=== PATIENT | male | born 1940 | race Hispanic/Latino ===

== ENCOUNTER 2017-08-19 09:03 | Day surgery (SDC) | payer MEDICARE, OTHER ==
[2016-01-28 16:08] VITALS: PULSE 91
[2017-08-10 12:09] VITALS: BMI 27.3
[2017-08-19] MEDS ORDERED: Propofol 10 mg/ml Inj (20 ML) ONE (09:37)
[2017-08-19] MEDS ORDERED: Sodium Chloride 0.9% 1,000 ML IV SCH (09:45)
[2017-08-19 09:58] LABS: INR 1.18 (0.93-1.08)
[2017-08-19 12:05] VITALS: PULSE 56; RESP 20; TEMP 97.8; O2SAT 95
[2017-08-19 14:18] VITALS: BP 162/90
== END 2017-08-19 12:07 | disposition home or self-care (01) ==
LOC: ENDO 09:03
PROVIDERS: ATTEND Specialist
DX: Z12.11 Encounter for screening for malignant neoplasm of colon (principal); D12.2 Benign neoplasm of ascending colon; D12.3 Benign neoplasm of transverse colon; Z85.038 Personal history of other malignant neoplasm of large intestine; K64.8 Other hemorrhoids; I25.10 Atherosclerotic heart disease of native coronary artery without angina pectoris; I48.91 Unspecified atrial fibrillation
CPT/HCPCS: 36415; 45381; 45385; 85610; 88305; J2001; J2704; J7040 ×2

== ENCOUNTER 2018-06-19 22:52 | Inpatient (IN) | payer MEDICARE, OTHER ==
[2018-06-19 22:54] VITALS: BMI 23.6
--- NOTE | 2018-06-19 23:06 | ED PDOC ---
Arrival/HPI - General Time Seen by Provider: 06/19/18 22:53 Historian: Patient, Spouse - History of Present Illness Narrative History of Present Illness (Text): 06/19/18 22:58 Bradley Encinas is a 77 year old male, whose past medical history includes atrial fibrillation, aortic valve replacement, open heart surgery, and seizures , who presents to the Emergency department brought in by EMS status post possible seizure. As per , patient was sitting at home when he began complaining of chills, at that time patient temperature was 96.7F. states patient went to bed and noted patient was shaking and poorly responsive to questioning when she went to check on him. notes patient had urinated on himself and had a temperature of 102.7F. notes patient was fine throughout the day and patient currently only complaining of a headache. notes patient recently fell 2 days prior and hit his head. Patient denies any chest pain, shortness of breath, dizziness, or any other complaints. Patient regularly takes Trileptal, Warfarin, and Digoxin. PMD: Dr. Packer Assistant Service Manager: Dr. Tee Time/Duration: Prior to Arrival Symptom Onset: Sudden Activities at Onset: Light Context: Home Past Medical History - Provider Review Nursing Documentation Reviewed: Yes - Infectious Disease Hx of Infectious Diseases: None - Tetanus Immunization Tetanus Immunization: Unknown - Cardiac Hx Pacemaker: No - Pulmonary Hx Respiratory Disorders: No - Neurological Hx Seizures: Yes - HEENT Hx Deafness: Yes ([place]) - Renal Hx Renal Disorder: No - Endocrine/Metabolic Hx Endocrine Disorders: No - Hematological/Oncological Hx Blood Transfusions: No Hx Blood Transfusion Reaction: No - Integumentary Hx Dermatological Disorder: No - Musculoskeletal/Rheumatological Hx Musculoskeletal Disorders: Yes (HANDS) - Gastrointestinal Hx Gastrointestinal Disorders: No - Genitourinary/Gynecological Hx Genitourinary Disorders: No - Psychiatric Hx Emotional Abuse: No Hx Physical Abuse: No Hx Substance Use: No - Surgical History Hx Open Heart Surgery: Yes Hx Valve Replacement: Yes (AVR) - Anesthesia Hx Anesthesia: Yes Hx Anesthesia Reactions: No Hx Malignant Hyperthermia: No - Suicidal Assessment Feels Threatened In Home Enviroment: No Family/Social History - Physician Review Nursing Documentation Reviewed: Yes Family/Social History: Unknown Family HX Smoking Status: Never Smoked Hx Alcohol Use: Yes (SOCIALLY) Hx Substance Use: No Hx Substance Use Treatment: No Allergies/Home Meds Allergies/Adverse Reactions: Allergies COLD MEDICATIONS Allergy (Intermediate, Uncoded 07/04/16 11:55) RASH Home Medications: Home Meds Medication Instructions Recorded Confirmed Aspirin [Ecotrin] 81 mg PO DAILY 01/28/16 06/19/18 OXcarbazepine [Trileptal] 300 mg PO Q12 01/28/16 06/19/18 Tamsulosin [Flomax] 0.4 mg PO DAILY 01/28/16 06/19/18 Digoxin 0.125 mg PO DAILY 07/04/16 06/19/18 Warfarin [Coumadin] 6 mg PO QAM 07/04/16 06/19/18 Review of Systems - Physician Review All systems were reviewed & negative as marked: Yes - Review of Systems Constitutional: Fevers, Other (+chills) Eyes: Normal ENT: Normal Respiratory: Normal. absent: SOB, Cough Cardiovascular: Normal. absent: Chest Pain Gastrointestinal: Normal. absent: Abdominal Pain, Diarrhea, Nausea, Vomiting Genitourinary Male: Other (+urinary incontinence) Musculoskeletal: Normal. absent: Back Pain, Neck Pain Skin: Normal. absent: Rash Neurological: Headache, Seizure (+possible seizure) Endocrine: Normal Hemo/Lymphatic: Normal Psychiatric: Normal Physical Exam Vital Signs Temp Pulse Resp BP Pulse Ox 06/20/18 00:58 101.7 F H 77 18 131/62 95 06/20/18 00:00 101.7 F H 06/19/18 23:00 105 F H - Systems Exam Head: Present: Atraumatic, Normocephalic Pupils: Present: PERRL Extroacular Muscles: Present: EOMI Conjunctiva: Present: Normal Mouth: Present: Moist Mucous Membranes Neck: Present: Normal Range of Motion Respiratory/Chest: Present: Clear to Auscultation, Good Air Exchange. No: Respiratory Distress, Accessory Muscle Use Cardiovascular: Present: Regular Rate and Rhythm, Normal S1, S2. No: Murmurs Abdomen: No: Tenderness, Distention, Peritoneal Signs Back: Present: Normal Inspection Upper Extremity: Present: Normal Inspection. No: Cyanosis, Edema Lower Extremity: Present: Normal Inspection. No: Edema Neurological: Present: GCS=15, CN II-XII Intact, Speech Normal Skin: Present: Warm, Dry, Normal Color. No: Rashes Psychiatric: Present: Alert, Oriented x 3, Normal Insight, Normal Concentration Medical Decision Making ED Course and Treatment: 06/19/18 22:58 Impression: 77 year old male presented s/p possible seizure with fever and chills. Plan: -- EKG -- Chest X-ray -- Labs, VBG, troponin, blood cultures -- Urinalysis, urine cultures -- Reassess and disposition Prior Visits: Notes and results from previous visits were reviewed. Progress Notes: Reviewed EKG, a fib at [address] bpm[address] Non-specific ST/T wave changes. 06/20/18 00:50 Reviewed radiology, Chest X-ray shows no acute processes. CT Head shows: Brain: Diffuse cerebral volume loss and chronic microvascular white matter changes. Tiny old lacunar infarcts at the left basal ganglia and thalamus. Ventricles: Unremarkable. Bones/joints: Unremarkable. No acute fracture. Soft tissues: Unremarkable. Sinuses: Paranasal sinus mucosal changes. Mastoid air cells: Unremarkable as visualized. IMPRESSION: No focal mass or other acute intracranial pathology. Chronic changes as above. 06/20/18 01:[address] Smith, who is aware and agrees with plan. Accepts pt in to his service. Pt will be admitted to telemetry for UTI and seizure. - Lab Interpretations Lab Results: 06/19/18 23:20 06/19/18 23:20 Lab Results 06/20/18 00:55: Urine Color Yellow, Urine Appearance Sl cloudy, Urine pH 6.0, Ur Specific [place] 1.020, Urine Protein 30 H, Urine Glucose (UA) Negative, Urine Ketones Trace H, Urine Blood Large H, Urine Nitrate Positive H, Urine Bilirubin Negative, Urine Urobilinogen 1.0 H, Ur Leukocyte Esterase Small H, Urine RBC 20 - 25, Urine WBC 2 - 5, Ur Epithelial Cells 0 - 2, Urine Bacteria Mod 06/19/18 23:20: Sodium 142, Chloride 106, Potassium 3.6, Carbon Dioxide 25, Anion Gap 15, BUN 24 H, Creatinine 0.8, Est GFR ( Amer) > 60, Est GFR ( Non-Af Amer) > 60, Random Glucose 123 H, Calcium 9.1, Phosphorus 1.4 L*, Magnesium 1.7, Total Bilirubin 1.4 H, AST 36, ALT 24, Alkaline Phosphatase 106, Troponin I 0.11 D, Total Protein 7.5, Albumin 3.8, Globulin 3.7, Albumin/ Globulin Ratio 1.1 06/19/18 23:20: pO2 50, VBG pH 7.46 H, VBG pCO2 36.0 L, VBG HCO3 25.6, VBG Total CO2 26.7, VBG O2 Sat (Calc) 88.8 H, VBG Base Excess 2.0, VBG Potassium 3.7 , Sodium 140.0, Chloride 106.0, Glucose 125 H, Lactate 1.5, FiO2 21.0, Venous Blood Potassium 3.7 06/19/18 23:20: PT 31.9 H, INR 2.74, APTT 30.4 06/19/18 23:20: WBC 9.9, RBC 4.79, Hgb 15.3, Hct 43.7, MCV 91.2, MCH 31.9, MCHC 35.0, RDW 13.2, Plt Count 103 L, MPV 9.4, Gran % 95.3 H, Lymph % (Auto) 1.4 L, [place] % (Auto) 2.5, Eos % (Auto) 0.7 L, Baso % (Auto) 0.1, Gran # 9.44 H, Lymph # (Auto) 0.1 L, [place] # (Auto) 0.3, Eos # (Auto) 0.1, Baso # (Auto) 0.01, Neutrophils % (Manual) 94 H, Lymphocytes % (Manual) 2 L, Monocytes % (Manual) 3 , Eosinophils % (Manual) 1 I have reviewed the lab results: Yes - RAD Interpretation Radiology Orders: 06/19/18 23:00 CHEST PORTABLE [RAD] Stat 06/20/18 23:57 HEAD W/O CONTRAST [CT] Stat Hand Decorator: ED Physician, Radiologist - EKG Interpretation Interpreted by ED Physician: Yes Type: 12 lead EKG - Medication Orders Current Medication Orders: Acetaminophen (Tylenol 325mg Tab) 650 mg PO Q4H PRN PRN Reason: Fever >100.5 F Last Admin: 06/20/18 16:34 Dose: 650 mg MARLIN Pain/Vitals Document 06/20/18 16:34 CD (Rec: 06/20/18 16:36 CD [id number]) Vitals Temperature (97.6 F-99.6 F) 100.5 F Temperature Source Oral Re-Assess: MARLIN Pain/Vitals Document 06/20/18 17:34 CD (Rec: 06/20/18 18:13 CD [id number]) Vitals Temperature (97.6 F-99.6 F) 99.9 F Temperature Source Oral Albuterol/Ipratropium (Duoneb 3 Mg/0.5 Mg (3 Ml) Ud) 3 ml IH [id number] PRN PRN Reason: Shortness of Breath Last Admin: 06/20/18 15:49 Dose: 3 ml Aspirin (Ecotrin) 81 mg PO DAILY [facility] Last Admin: 06/20/18 09:44 Dose: 81 mg Digoxin (Digoxin) 0.125 mg PO DAILY [facility] Last Admin: 06/20/18 12:51 Dose: 0.125 mg MAR Apical Pulse Rate Document 06/20/18 12:51 CD (Rec: 06/20/18 12:51 CD [id number]) Apical Pulse Rate Apical Pulse Rate (60-90 beats/min) 88 Levofloxacin/Dextrose (Levaquin 750mg) 750 mg in 150 mls @ 100 mls/hr IVPB DAILY RICARDO PRN Reason: Protocol Stop: 06/27/18 22:04 Meropenem (Merrem Iv 1 Gm Premix) 50 mls @ 100 mls/hr IVPB Q8 RICARDO PRN Reason: Protocol Stop: 06/28/18 22:05 Vancomycin HCl (Vancomycin 1gm) 1 gm in 250 mls @ 167 mls/hr IVPB Q12H RICARDO PRN Reason: Protocol Stop: 06/27/18 22:16 Acyclovir 750 mg/ Sodium (Chloride) 100 mls @ 100 mls/hr IV Q8 RICARDO PRN Reason: Protocol Stop: 06/29/18 22:10 Oxcarbazepine (Trileptal) 300 mg PO Q12 RICARDO PRN Reason: Protocol Last Admin: 06/20/18 21:28 Dose: 300 mg Behavioural Document 06/20/18 21:28 TTC (Rec: 06/20/18 21:28 TTC [id number]) Maintenance Maintenance Dose Yes Re-Assess: Reassess Psych Meds Document 06/20/18 22:28 TTC (Rec: 06/20/18 22:34 TTC [id number]) Reassess Psych Med Effective Potassium Phos/Sodium Phos (Neutra-Phos) 1 pkt PO TID [facility] Stop: 06/23/18 10:01 Last Admin: 06/20/18 17:23 Dose: 1 pkt Sotalol HCl (Betapace) 80 mg PO Q12H [facility] Last Admin: 06/20/18 12:44 Dose: 80 mg MAR Pulse and Blood Pressure Document 06/20/18 12:44 CD (Rec: 06/20/18 12:44 CD [id number]) Pulse Pulse Rate (60-90) 88 Blood Pressure Blood Pressure (100/60-150/90) 121/75 Tamsulosin HCl (Flomax) 0.4 mg PO DAILY [facility] Last Admin: 06/20/18 12:44 Dose: 0.4 mg Discontinued Medications Acetaminophen (Tylenol 325mg Tab) 650 mg PO STAT STA Stop: 06/19/18 23:15 Last Admin: 06/19/18 23:00 Dose: 650 mg MAR Pain/Vitals Document 06/19/18 23:00 RD (Rec: 06/19/18 23:37 RD [id number]) Pain Reassessment Is This A Pain ReAssessment? No Sleep Is patient sleeping during reassessment? No Presence of Pain Presence of Pain Yes Vitals Temperature (97.6 F-99.6 F) 105 F Temperature Source Rectal Re-Assess: MARLIN Pain/Vitals Document 06/20/18 00:00 RD (Rec: 06/20/18 01:17 RD [id number]) Vitals Temperature (97.6 F-99.6 F) 101.7 F Temperature Source Rectal Albuterol/Ipratropium (Duoneb 3 Mg/0.5 Mg (3 Ml) Ud) 3 ml IH [id number] [facility] Ceftriaxone Sodium (Rocephin 1 Gram Ivpb) 1 gm in 100 mls @ 200 mls/hr IVPB STAT STA PRN Reason: Protocol Stop: 06/20/18 01:30 Last Admin: 06/20/18 01:16 Dose: 200 mls/hr eMAR Start Stop Document 06/20/18 01:16 RD (Rec: 06/20/18 01:16 RD [id number]) Intravenous Solution Start Date 06/20/18 Start Time 01:16 End Date 06/20/18 End time 01:46 Total Infusion Time 30 Vancomycin HCl (Vancomycin 1gm) 1 gm in 250 mls @ 167 mls/hr IVPB STAT STA PRN Reason: Protocol Stop: 06/20/18 02:29 Last Admin: 06/20/18 01:46 Dose: 167 mls/hr eMAR Start Stop Document 06/20/18 01:46 RD (Rec: 06/20/18 01:46 RD [id number]) Intravenous Solution Start Date 06/20/18 Start Time 01:46 End Date 06/20/18 End time 03:16 Total Infusion Time 90 Sodium Chloride (Sodium Chloride 0.9%) 1,000 mls @ 100 mls/hr IV .Q10H STA Stop: 06/20/18 11:30 Last Admin: 06/20/18 01:45 Dose: 100 mls/hr eMAR Start Stop Document 06/20/18 01:45 RD (Rec: 06/20/18 01:46 RD [id number]) Intravenous Solution Start Date 06/20/18 Start Time 01:46 Ceftriaxone Sodium (Rocephin 1 Gram Ivpb) 1 gm in 100 mls @ 100 mls/hr IVPB DAILY RICARDO PRN Reason: Protocol Last Admin: 06/20/18 12:43 Dose: 100 mls/hr eMAR Start Stop Document 06/20/18 12:43 CD (Rec: 06/20/18 12:44 CD [id number]) Intravenous Solution Start Date 06/20/18 Start Time 12:44 Potassium Phos/Sodium Phos (Neutra-Phos) 1 pkt PO STAT STA Stop: 06/20/18 01:00 Last Admin: 06/20/18 01:09 Dose: 1 pkt - Scribe Statement The provider has reviewed the documentation as recorded by the Scribmary beth Mcfadden All medical record entries made by the Adiaibmary beth were at my direction and personally dictated by me. I have reviewed the chart and agree that the record accurately reflects my personal performance of the history, physical exam, medical decision making, and the department course for this patient. I have also personally directed, reviewed, and agree with the discharge instructions and disposition. Disposition/Present on Arrival - Present on Arrival Any Indicators Present on Arrival: No History of DVT/PE: No History of Uncontrolled Diabetes: No Urinary Catheter: No History of Decub. Ulcer: No History Surgical Site Infection Following: None - Disposition Have Diagnosis and Disposition been Completed?: Yes Diagnosis: Urinary tract infection, Elevated troponin Disposition: HOSPITALIZED Disposition Time: 01:30 Condition: FAIR
[2018-06-19 23:53] LABS: VENOUS BLOOD GAS PO2 50 mm/Hg (30-55); VENOUS BLOOD PH 7.46 (7.32-7.43)
[2018-06-20 00:05] LABS: INR 2.74; PARTIAL THROMBOPLASTIN TIME 30.4 Seconds (25.1-36.5); PROTHROMBIN TIME 31.9 SECONDS (9.4-12.5)
[2018-06-20 00:17] LABS: BASO # 0.01 K/mm3 (0.0-2.0); BASO % 0.1 % (0.0-3.0); EOS # 0.1 (0.0-0.7); EOS % 0.7 % (1.5-5.0); GRAN # 9.44 (1.4-6.5); GRAN % 95.3 % (50.0-68.0); HEMOGLOBIN 15.3 g/dL (14.0-18.0); LYMPH # 0.1 (1.2-3.4); LYMPH % 1.4 % (22.0-35.0); MEAN CELL VOLUME 91.2 fl (80.0-105.0); MEAN CORPUSCULAR HEMOGLOBIN 31.9 pg (25.0-35.0); MEAN PLATELET VOLUME 9.4 fl (7.0-11.0); MONO # 0.3 (0.1-0.6); MONO % 2.5 % (1.0-6.0); PLATELET COUNT 103 10^3/uL (120.0-450.0); RBC 4.79 10^6/uL (3.5-6.1); RED CELL DISTRIBUTION WIDTH 13.2 % (11.5-14.5); WHITE BLOOD COUNT 9.9 10^3/ul (4.5-11.0)
[2018-06-20 00:22] LABS: TROPONIN I 0.11 ng/mL
[2018-06-20 00:25] LABS: ALB/GLOB RATIO 1.1 (1.1-1.8); ALBUMIN 3.8 g/dL (3.0-4.8); ALT/SGPT 24 U/L (7-56); AST/SGOT 36 U/L (17-59); BLOOD UREA NITROGEN 24 mg/dL (7-21); CALCIUM 9.1 mg/dL (8.4-10.5); GFR NON-AFRICAN AMERICAN > 60
[2018-06-20 00:56] LABS: EOSINOPHIL 1 % (0.0-3.0); LYMPHOCYTE 2 % (22.0-35.0); MONOCYTE 3 % (1.0-6.0); NEUTROPHIL 94 % (50.0-70.0)
[2018-06-20] MEDS ORDERED: Potassium & Sodium Phosphate PO STA (00:59)
[2018-06-20] MEDS ORDERED: Vancomycin 1gm in NS 250ml 1 GM/250 ML BAG IVPB STA (01:00)
[2018-06-20] MEDS ORDERED: cefTRIAXone 1 gm 1 GM/100 ML BAG IVPB STA (01:01)
[2018-06-20 01:10] LABS: URINE BILIRUBIN NEGATIVE (NEGATIVE); URINE BLOOD LARGE (NEGATIVE); URINE GLUCOSE (UA) NEGATIVE (NEGATIVE); URINE LEUKOCYTE ESTERASE SMALL Leu/uL (NEGATIVE); URINE PROTEIN 30 mg/dL (<30 mg/dL)
[2018-06-20 01:15] LABS: URINE APPEARANCE SL CLOUDY (CLEAR); URINE COLOR YELLOW (YELLOW)
[2018-06-20 01:27] LABS: URINE BACTERIA MOD (NEG); URINE EPITHELIAL CELLS 0 - 2 /hpf (0-5); URINE RBC 20 - 25 /hpf (0-2)
[2018-06-20] MEDS ORDERED: Sodium Chloride 0.9% 1,000 ML IV STA (01:31)
--- NOTE | 2018-06-20 08:53 | CP.PCM.HP ---
<Lou Baker - Last Filed: 06/20/18 12:25> History of Present Illness - History of Present Illness History of Present Illness: PGY-[address] Smith Mr Encinas, 75 M, PMHx a fib on warfarin/sotalol and digioxin, aortic valve replacement s/p open heart surgery, seizure. Pt found pt was shaking at home with chills. Pt was unresponsive with eyes and mouth wide open. noticed pt urinating on himself and T 102.7F. Pt had a fall 2 days ago and hit his head. Pt denies sick contact, recent change in meds, skipping meds. At baseline, he IS urinary continence per pt and per . Today, pt complaint he has urine dripping from his penis. ROS: (+) chills. (+) urinary incontinence Deon BENJAMIN, CP, SOB, palpitation, N/V/D/C, dysuria ED: VS T105. HR/SBP/RR normal CBC normal except plt 103 Lactate 1.5 Phos 1.4. Trops 0.11 CK 64 U/A: Mod bacteria, + maya est, + nitrate EKG: a fib at 71 bpm. Non-specific ST/T wave changes. Chest X-ray shows no acute processes. CT head: No focal mass or other acute intracranial pathology. Diffuse cerebral volume loss and chronic microvascular white matter changes. Tiny old lacunar infarcts at the left basal ganglia and thalamus. He received vanco/ceftriaxone x 1 in ED PMH warfarin/sotalol and digioxin aortic valve replacement Seizure on trileptal x several years. unknown cause Hard of hearing BPH PSH Open heart surgery Aortic valve replaccment SH denies smoke. occasional etoh All cold medicine - rash Med ASA, warfarin 6, digioxin, trileptal, flomax PMD: Dr Packer [place] Worker: Dr Tee Neurologist: Stephen Martinez Urologist: Dr Mosquera (retired) Dr Marino Present on Admission - Present on Admission Any Indicators Present on Admission: No Past Patient History - Infectious Disease Hx of Infectious Diseases: None - Tetanus Immunizations Tetanus Immunization: Unknown - Past Social History Smoking Status: Never Smoked - CARDIAC Hx Pacemaker: No - PULMONARY Hx Respiratory Disorders: No - NEUROLOGICAL Hx Seizures: Yes - HEENT Hx Deafness: Yes ([place]) - RENAL Hx Chronic Kidney Disease: No - ENDOCRINE/METABOLIC Hx Endocrine Disorders: No - HEMATOLOGICAL/ONCOLOGICAL Hx Blood Transfusions: No Hx Blood Transfusion Reaction: No - INTEGUMENTARY Hx Dermatological Problems: No - MUSCULOSKELETAL/RHEUMATOLOGICAL Hx Falls: No - GASTROINTESTINAL Hx Gastrointestinal Disorders: No - GENITOURINARY/GYNECOLOGICAL Hx Genitourinary Disorders: No - PSYCHIATRIC Hx Emotional Abuse: No Hx Physical Abuse: No Hx Substance Use: No - SURGICAL HISTORY Hx Open Heart Surgery: Yes Hx Valve Replacement: Yes (AVR) - ANESTHESIA Hx Anesthesia: Yes Hx Anesthesia Reactions: No Hx Malignant Hyperthermia: No Meds Allergies/Adverse Reactions: Allergies Allergy/AdvReac Type Severity Reaction Status Date / Time COLD MEDICATIONS Allergy Intermediate RASH Uncoded 07/04/16 11:55 Physical Exam - Constitutional Appears: No Acute Distress - Head Exam Head Exam: ATRAUMATIC, NORMAL INSPECTION, NORMOCEPHALIC - Eye Exam Eye Exam: EOMI, Normal appearance, PERRL. absent: Scleral icterus Pupil Exam: NORMAL ACCOMODATION - ENT Exam ENT Exam: Mucous Membranes Moist - Neck Exam Additional comments: supple - Respiratory Exam Respiratory Exam: Clear to Auscultation Bilateral. absent: Rales, Rhonchi, Wheezes - Cardiovascular Exam Cardiovascular Exam: REGULAR RHYTHM, +S1, +S2 - GI/Abdominal Exam GI & Abdominal Exam: Normal Bowel Sounds, Soft. absent: Distended, Guarding, Tenderness - Extremities Exam Extremities exam: Positive for: pedal pulses present. Negative for: calf tenderness, tenderness - Back Exam Back exam: absent: CVA tenderness (L), CVA tenderness (R) - Neurological Exam Neurological exam: Alert, CN II-XII Intact, Oriented x3 Additional comments: Forget doctor's name and seizure length how many years ago move all extremities equally motor sensory grossly intact - Psychiatric Exam Psychiatric exam: Normal Affect, Normal Mood - Skin Skin Exam: Dry, Normal Color Results - Vital Signs Recent Vital Signs: Last Vital Signs Temp 97.5 F L 06/20/18 04:07 Pulse 88 06/20/18 05:55 Resp 20 06/20/18 05:55 BP 121/75 06/20/18 05:55 Pulse Ox 97 06/20/18 02:22 - Labs Result Diagrams: 06/19/18 23:20 06/19/18 23:20 Labs: Laboratory Results - last 24 hr 06/20/18 02:00 Total Creatine Kinase 64 Assessment & Plan - Assessment and Plan (Free Text) Plan: Mr Encinas, 75 M, PMHx a fib on warfarin/sotalol and digioxin, aortic valve replacement open heart, seizure. Pt found pt was shaking and non- responsive. noticed pt urinating on himself and T 102.7F. Pt had a fall 2 days ago and hit his head. In ED, he had fever 105. he was found to have elevated trops. Shaking with alter mental status likely from high fever r/o breakthrough seizure questionable metabolic encephalopathy from hypophosphatemia - He had urinary incontinent. No bit eddie. CK normal. resolved - CT head: No focal mass or other acute intracranial pathology. Diffuse cerebral volume loss and chronic microvascular white matter changes. Tiny old lacunar infarcts at the left basal ganglia and thalamus. - patient monitor, seizure/aspiration precaution - Continue home trileptal 300Q12 - Neurology consult High Fever likely UTI UTI, complicated vs non-complicated - U/A: Mod bacteria, + maya est, + nitrate - Chest X-ray shows no acute processes. - F/u blood and urine culture - Ceftriaxone IV, pending ID rec Thrombocytopenia - likely reactive to fever. continue to trend New onset urinary incontinence - bladder scan prn - Urology consult for possible cystoscopy - PSA Elevated troponin, No chest pain/dizziness - EKG: a fib at 71 bpm. Non-specific ST/T wave changes. - Telemetry - cardiology consult Hypophosphatemia - repleted. supplement TID A-fib aortic valve replacement - warfarin/sotalol and digioxin - digoxin level Hard of hearing Deconditiong - physical therapy s/r/d/w Dr Smith <Nato Smith S - Last Filed: 06/21/18 18:10> Results - Vital Signs Recent Vital Signs: Last Vital Signs Temp 98 F 06/21/18 12:00 Pulse 76 06/21/18 12:00 Resp 18 06/21/18 12:00 BP 177/93 H 06/21/18 12:00 Pulse Ox 93 L 06/21/18 06:00 - Labs Result Diagrams: 06/21/18 05:40 06/21/18 05:40 Labs: Laboratory Results - last 24 hr 06/20/18 06/20/18 06/20/18 01:50 22:35 22:35 WBC RBC Hgb Hct MCV MCH MCHC RDW Plt Count MPV Gran % Lymph % (Auto) [place] % (Auto) Eos % (Auto) Baso % (Auto) Gran # Lymph # (Auto) [place] # (Auto) Eos # (Auto) Baso # (Auto) ESR 30 H PT INR Sodium Potassium Chloride Carbon Dioxide Anion Gap BUN Creatinine Est GFR ( Amer) Est GFR (Non-Af Amer) POC Glucose (mg/dL) 101 Random Glucose Calcium Phosphorus Magnesium Total Bilirubin AST ALT Alkaline Phosphatase Troponin I C-Reactive Protein Total Protein Albumin Globulin Albumin/Globulin Ratio Prostate Specific Ag Procalcitonin 9.27 H Ur L.pneumophila Ag 06/20/18 06/20/18 06/21/18 22:35 22:35 00:05 WBC RBC Hgb Hct MCV MCH MCHC RDW Plt Count MPV Gran % Lymph % (Auto) [place] % (Auto) Eos % (Auto) Baso % (Auto) Gran # Lymph # (Auto) [place] # (Auto) Eos # (Auto) Baso # (Auto) ESR PT INR Sodium Potassium Chloride Carbon Dioxide Anion Gap BUN Creatinine Est GFR ( Amer) Est GFR (Non-Af Amer) POC Glucose (mg/dL) Random Glucose Calcium Phosphorus Magnesium Total Bilirubin AST ALT Alkaline Phosphatase Troponin I C-Reactive Protein 54.40 H Total Protein Albumin Globulin Albumin/Globulin Ratio Prostate Specific Ag 1.7 Procalcitonin Ur L.pneumophila Ag Negative 06/21/18 06/21/18 06/21/18 05:40 05:40 05:40 WBC 11.7 H RBC 4.25 Hgb 13.1 L D Hct 39.3 L MCV 92.5 MCH 30.8 MCHC 33.3 RDW 13.6 Plt Count 94 L MPV 9.7 Gran % 86.7 H Lymph % (Auto) 7.4 L [place] % (Auto) 5.6 Eos % (Auto) 0.2 L Baso % (Auto) 0.1 Gran # 10.14 H Lymph # (Auto) 0.9 L [place] # (Auto) 0.7 H Eos # (Auto) 0.0 Baso # (Auto) 0.01 ESR PT 27.8 H INR 2.38 Sodium 142 Potassium 3.9 Chloride 108 H Carbon Dioxide 24 Anion Gap 13 BUN 24 H Creatinine 0.6 L Est GFR ( Amer) > 60 Est GFR (Non-Af Amer) > 60 POC Glucose (mg/dL) Random Glucose 119 H Calcium 7.9 L Phosphorus 2.3 L Magnesium 1.7 Total Bilirubin 1.3 AST 24 ALT 31 Alkaline Phosphatase 70 Troponin I C-Reactive Protein Total Protein 6.3 Albumin 3.0 Globulin 3.2 Albumin/Globulin Ratio 0.9 L Prostate Specific Ag Procalcitonin Ur L.pneumophila Ag 06/21/18 05:40 WBC RBC Hgb Hct MCV MCH MCHC RDW Plt Count MPV Gran % Lymph % (Auto) [place] % (Auto) Eos % (Auto) Baso % (Auto) Gran # Lymph # (Auto) [place] # (Auto) Eos # (Auto) Baso # (Auto) ESR PT INR Sodium Potassium Chloride Carbon Dioxide Anion Gap BUN Creatinine Est GFR ( Amer) Est GFR (Non-Af Amer) POC Glucose (mg/dL) Random Glucose Calcium Phosphorus Magnesium Total Bilirubin AST ALT Alkaline Phosphatase Troponin I 0.11 D C-Reactive Protein Total Protein Albumin Globulin Albumin/Globulin Ratio Prostate Specific Ag Procalcitonin Ur L.pneumophila Ag Assessment & Plan - Assessment and Plan (Free Text) Plan: Pt seen and examined. I have reviewed the note of the clinical medical assistant and agree with it. I have discussed the assessment and plan with the resident. I have reviewed the patient's labs and medications. Pt seen with sepsis probably UTI. Pt started on IV Abx. He has low phosp and this is going to be replaced. Pt on Coumadin for A fib. He has an elevated trop. Will get Cardio to evaluate.
--- NOTE | 2018-06-20 09:13 | RAD ---
Date of service: 06/19/2018 HISTORY: Sepsis Patient Comparison chest 01/27/2018 COMPARISON: FINDINGS: LUNGS: No acute infiltrates. PLEURA: Pleural based calcifications salas right both lung bases right greater than left. CARDIOVASCULAR: Cardiomegaly. Sternotomy wires and CABG clips. . OSSEOUS STRUCTURES: No significant abnormalities. VISUALIZED UPPER ABDOMEN: Normal. OTHER FINDINGS: None. IMPRESSION: Pleural based calcifications salas right both lung bases right greater than left.
--- NOTE | 2018-06-20 09:33 | CT ---
Date of service: 06/20/2018 PROCEDURE: CT HEAD WITHOUT CONTRAST. HISTORY: Seizure COMPARISON: Comparison made with prior MRI of brain dated 09/06/2020 TECHNIQUE: Axial computed tomography images were obtained through the head/brain without intravenous contrast. Radiation dose: Total exam DLP = 898.72 mGy-cm. This CT exam was performed using one or more of the following dose reduction techniques: Automated exposure control, adjustment of the mA and/or kV according to patient size, and/or use of iterative reconstruction technique. FINDINGS: HEMORRHAGE: No acute parenchymal, subarachnoid nor extra-axial hemorrhage. . BRAIN: Moderate to fairly significant diffuse and confluent chronic periventricular white matter ischemic changes again seen extending peripherally into the deep and subcortical white matter both cerebral hemispheres. Numerous more discrete chronic appearing infarcts scattered about deep and subcortical white matter as well as both basal nuclei present. Note these changes are seen better advantage on prior high-resolution MRI No obvious parenchymal nor extra-axial masses or collections are identified on this noncontrast study. Moderate central volume loss with disproportion enlargement of the ventricles as compared the sulci. VENTRICLES: Dilatation of the 3rd and lateral ventricles likely due to central volume loss CALVARIUM: Comment intact. PARANASAL SINUSES: Unremarkable as visualized. No significant inflammatory changes. Mucosal thickening noted within the ethmoid air complex extending superiorly into frontal sinus. Minor mucosal both maxillary antra with minimal mucosal thickening sphenoid sinus MASTOID AIR CELLS: Unremarkable as visualized. No inflammatory changes. OTHER FINDINGS: Changes of left-sided cataract surgery. IMPRESSION: No evidence of acute intracranial hemorrhage. Moderate to significant chronic white matter ischemic changes with scattered chronic bilateral basal nuclei lacunar type infarcts. Moderate central volume loss. Mucoperiosteal inflammatory changes within all the paranasal sinuses as described.
[2018-06-20] MEDS: Potassium & Sodium Phosphate PO SCH ×3 (09:44→17:23)
[2018-06-20] MEDS ORDERED: cefTRIAXone 1 gm 1 GM/100 ML BAG IVPB SCH (11:15)
--- NOTE | 2018-06-20 11:19 | CARD ---
APPROVED REPORT Date of service: 06/20/2018 EKG Measurement Heart [id number] <Conclusion> Atrial fibrillation Nonspecific ST abnormality, probably digitalis effect Abnormal ECG
[2018-06-20] MEDS: Digoxin 125 mcg (0.125 mg) Tab PO SCH (12:51)
[2018-06-20] MEDS ORDERED: Albuterol-Ipratrop 3 mg / 0.5 (3 ml) UD IH PRN (15:35)
[2018-06-20] MEDS ORDERED: Albuterol-Ipratrop 3 mg / 0.5 (3 ml) UD IH SCH (20:00)
[2018-06-20] MEDS: Vancomycin 1gm in NS 250ml 1 GM/250 ML BAG IVPB SCH (23:53)
[2018-06-20] MEDS: Meropenem IV 1 gm in NS 50 ML IVPB SCH (23:54)
[2018-06-20] MEDS: levoFLOXacin 750 mg in D5W 750 MG/150 ML BAG IVPB SCH (23:57)
[2018-06-21] MEDS: Meropenem IV 1 gm in NS 50 ML IVPB SCH ×3 (05:57→22:12)
[2018-06-21 06:23] LABS: BASO # 0.01 K/mm3 (0.0-2.0); BASO % 0.1 % (0.0-3.0); EOS % 0.2 % (1.5-5.0); GRAN # 10.14 (1.4-6.5); GRAN % 86.7 % (50.0-68.0); LYMPH # 0.9 (1.2-3.4); LYMPH % 7.4 % (22.0-35.0); MEAN CELL VOLUME 92.5 fl (80.0-105.0); MEAN CORPUSCULAR HEMOGLOBIN 30.8 pg (25.0-35.0); MEAN CORPUSCULAR HGB CONC 33.3 g/dl (31.0-37.0); MEAN PLATELET VOLUME 9.7 fl (7.0-11.0); MONO # 0.7 (0.1-0.6); MONO % 5.6 % (1.0-6.0); RBC 4.25 10^6/uL (3.5-6.1); RED CELL DISTRIBUTION WIDTH 13.6 % (11.5-14.5); WHITE BLOOD COUNT 11.7 10^3/ul (4.5-11.0)
[2018-06-21 06:28] LABS: HEMOGLOBIN 13.1 g/dL (14.0-18.0)
[2018-06-21 06:37] LABS: ALB/GLOB RATIO 0.9 (1.1-1.8); ALT/SGPT 31 U/L (7-56); AST/SGOT 24 U/L (17-59); BLOOD UREA NITROGEN 24 mg/dL (7-21); CALCIUM 7.9 mg/dL (8.4-10.5); GFR NON-AFRICAN AMERICAN > 60
[2018-06-21 06:45] LABS: INR 2.38; PROTHROMBIN TIME 27.8 SECONDS (9.4-12.5)
--- NOTE | 2018-06-21 08:34 | CP.PCM.PN ---
<Lou Baker - Last Filed: 06/21/18 10:48> Subjective - Date & Time of Evaluation Date of Evaluation: 06/21/18 Time of Evaluation: 08:31 - Subjective Subjective: PGY-[address] Smith Pt had fever of 100.5, felt dizzy and sweaty Denies CP, SOB, N/V/D/C, dysuria (+) urinary incontinence Objective - Vital Signs/Intake and Output Vital Signs (last 24 hours): Temp Pulse Resp BP Pulse Ox 98.4 F 80 20 155/89 H 93 L 06/21/18 06:00 06/21/18 06:00 06/21/18 06:00 06/21/18 06:00 06/21/18 06:00 Intake and Output: 06/21/18 06/21/18 06:59 18:59 Intake Total 1550 Balance 1550 - Medications Medications: Current Medications Acetaminophen (Tylenol 325mg Tab) 650 mg PO Q4H PRN PRN Reason: Fever >100.5 F Last Admin: 06/20/18 16:34 Dose: 650 mg Albuterol/Ipratropium (Duoneb 3 Mg/0.5 Mg (3 Ml) Ud) 3 ml IH [id number] PRN PRN Reason: Shortness of Breath Last Admin: 06/20/18 15:49 Dose: 3 ml Aspirin (Ecotrin) 81 mg PO DAILY [facility] Last Admin: 06/20/18 09:44 Dose: 81 mg Digoxin (Digoxin) 0.125 mg PO DAILY [facility] Last Admin: 06/20/18 12:51 Dose: 0.125 mg Levofloxacin/Dextrose (Levaquin 750mg) 750 mg in 150 mls @ 100 mls/hr IVPB DAILY [facility] PRN Reason: Protocol Stop: 06/27/18 22:04 Last Admin: 06/20/18 23:57 Dose: 100 mls/hr Meropenem (Merrem Iv 1 Gm Premix) 50 mls @ 100 mls/hr IVPB Q8 [facility] PRN Reason: Protocol Stop: 06/28/18 22:05 Last Admin: 06/21/18 05:57 Dose: 100 mls/hr Vancomycin HCl (Vancomycin 1gm) 1 gm in 250 mls @ 167 mls/hr IVPB Q12H [facility] PRN Reason: Protocol Stop: 06/27/18 22:16 Last Admin: 06/20/18 23:53 Dose: 167 mls/hr Acyclovir 750 mg/ Sodium (Chloride) 100 mls @ 100 mls/hr IV Q8 [facility] PRN Reason: Protocol Stop: 06/29/18 22:10 Last Admin: 06/21/18 05:57 Dose: 100 mls/hr Oxcarbazepine (Trileptal) 300 mg PO Q12 [facility] PRN Reason: Protocol Last Admin: 06/20/18 21:28 Dose: 300 mg Potassium Phos/Sodium Phos (Neutra-Phos) 1 pkt PO TID [facility] Stop: 06/23/18 10:01 Last Admin: 06/20/18 17:23 Dose: 1 pkt Sotalol HCl (Betapace) 80 mg PO Q12H [facility] Last Admin: 06/20/18 23:59 Dose: 80 mg Tamsulosin HCl (Flomax) 0.4 mg PO DAILY [facility] Last Admin: 06/20/18 12:44 Dose: 0.4 mg Warfarin Sodium (Coumadin) 4 mg PO 1800 [facility] PRN Reason: Protocol - Labs Labs: 06/21/18 05:40 06/21/18 05:40 PT 27.8 SECONDS (9.4-12.5) H 06/21/18 05:40 INR 2.38 06/21/18 05:40 APTT 30.4 Seconds (25.1-36.5) 06/19/18 23:20 - Constitutional Appears: No Acute Distress - Head Exam Head Exam: ATRAUMATIC, NORMAL INSPECTION, NORMOCEPHALIC - Eye Exam Eye Exam: EOMI, Normal appearance, PERRL. absent: Scleral icterus Pupil Exam: NORMAL ACCOMODATION - ENT Exam ENT Exam: Mucous Membranes Moist - Neck Exam Additional comments: supple - Respiratory Exam Respiratory Exam: Clear to Ausculation Bilateral. absent: Rales, Rhonchi, Wheezes - Cardiovascular Exam Cardiovascular Exam: REGULAR RHYTHM, +S1, +S2 - GI/Abdominal Exam GI & Abdominal Exam: Soft, Normal Bowel Sounds. absent: Guarding, Rigid, Tenderness - Extremities Exam Extremities Exam: Normal Capillary Refill. absent: Calf Tenderness, Pedal Edema - Back Exam Back Exam: absent: CVA tenderness (L), CVA tenderness (R) - Neurological Exam Neurological Exam: Alert, Awake, Oriented x3 - Psychiatric Exam Psychiatric exam: Normal Affect, Normal Mood - Skin Skin Exam: Dry, Warm Assessment and Plan - Assessment and Plan (Free Text) Plan: Mr Encinas, 75 M, PMHx a fib on warfarin/sotalol and digioxin, aortic valve replacement open heart, seizure. Pt found pt was shaking and non- responsive. noticed pt urinating on himself, which was unusal. Pt had a fall 2 days ago and hit his head. In ED, he had fever 105. he was found to have elevated trops. Shaking with alter mental status likely from high fever r/o breakthrough seizure questionable metabolic encephalopathy from hypophosphatemia - He had urinary incontinent. No bit eddie. CK normal. resolved - CT head: No focal mass or other acute intracranial pathology. Diffuse cerebral volume loss and chronic microvascular white matter changes. Tiny old lacunar infarcts at the left basal ganglia and thalamus. 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 Fever 100.5 5pm yesterday UTI, complicated vs non-complicated - U/A: Mod bacteria, + maya est, + nitrate - Chest X-ray shows no acute processes. - F/u urine culture - Blood culture: neg x1d - Acyclovir, Levofloxacin, merem, vanco Thrombocytopenia - likely reactive to fever. continue to trend New onset urinary incontinence - bladder scan prn - Urology consult for possible cystoscopy - PSA Elevated troponin 0.11-->0.08, No chest pain/dizziness - EKG: a fib at [address] Non-specific ST/T wave changes. - Telemetry - cardiology consult Hypophosphatemia - repleted. supplement TID A-fib aortic valve replacement - warfarin/sotalol and digioxin - digoxin level checked - warfarin 4mg tonight Hard of hearing Hx fall x 1 last week; Deconditiong - physical therapy s/r/d/w Dr Smith <Nato Smith S - Last Filed: 06/21/18 18:49> Objective - Vital Signs/Intake and Output Vital Signs (last 24 hours): Temp Pulse Resp BP Pulse Ox 98.6 F 74 18 187/97 H 96 06/21/18 18:00 06/21/18 18:00 06/21/18 18:00 06/21/18 18:00 06/21/18 18:00 Intake and Output: 06/21/18 06/21/18 06:59 18:59 Intake Total 1550 2400 Output Total 650 Balance 1550 1750 - Medications Medications: Current Medications Acetaminophen (Tylenol 325mg Tab) 650 mg PO Q4H PRN PRN Reason: Fever >100.5 F Last Admin: 06/20/18 16:34 Dose: 650 mg Albuterol/Ipratropium (Duoneb 3 Mg/0.5 Mg (3 Ml) Ud) 3 ml IH [id number] PRN PRN Reason: Shortness of Breath Last Admin: 06/20/18 15:49 Dose: 3 ml Aspirin (Ecotrin) 81 mg PO DAILY [facility] Last Admin: 06/21/18 09:22 Dose: 81 mg Digoxin (Digoxin) 0.125 mg PO DAILY [facility] Last Admin: 06/21/18 09:22 Dose: 0.125 mg Levofloxacin/Dextrose (Levaquin 750mg) 750 mg in 150 mls @ 100 mls/hr IVPB DAILY [facility] PRN Reason: Protocol Stop: 06/27/18 22:04 Last Admin: 06/21/18 09:22 Dose: 100 mls/hr Meropenem (Merrem Iv 1 Gm Premix) 50 mls @ 100 mls/hr IVPB Q8 [facility] PRN Reason: Protocol Stop: 06/28/18 22:05 Last Admin: 06/21/18 13:42 Dose: 100 mls/hr Vancomycin HCl (Vancomycin 1gm) 1 gm in 250 mls @ 167 mls/hr IVPB Q12H [facility] PRN Reason: Protocol Stop: 06/27/18 22:16 Last Admin: 06/21/18 11:48 Dose: 167 mls/hr Acyclovir 750 mg/ Sodium (Chloride) 100 mls @ 100 mls/hr IV Q8 [facility] PRN Reason: Protocol Stop: 06/29/18 22:10 Last Admin: 06/21/18 13:42 Dose: 100 mls/hr Oxcarbazepine (Trileptal) 300 mg PO Q12 [facility] PRN Reason: Protocol Last Admin: 06/21/18 09:22 Dose: 300 mg Potassium Phos/Sodium Phos (Neutra-Phos) 1 pkt PO TID [facility] Stop: 06/23/18 10:01 Last Admin: 06/21/18 17:35 Dose: 1 pkt Sotalol HCl (Betapace) 80 mg PO Q12H [facility] Last Admin: 06/21/18 11:48 Dose: 80 mg Tamsulosin HCl (Flomax) 0.4 mg PO DAILY [facility] Last Admin: 06/21/18 09:22 Dose: 0.4 mg Warfarin Sodium (Coumadin) 4 mg PO 1800 [facility] PRN Reason: Protocol Last Admin: 06/21/18 17:35 Dose: 4 mg - Labs Labs: 06/21/18 05:40 06/21/18 05:40 PT 27.8 SECONDS (9.4-12.5) H 06/21/18 05:40 INR 2.38 06/21/18 05:40 APTT 30.4 Seconds (25.1-36.5) 06/19/18 23:20 Assessment and Plan - Assessment and Plan (Free Text) Plan: Pt seen and examined. I have reviewed the note of the medical claims examiner and agree with it. I have discussed the assessment and plan with the resident. I have reviewed the patient's labs and medications. Pt on IV abx and UCx is pending. He is on phospate to replete. A fib controlled, on Coumadin and Dig. Appreciate ID note. PT. Possible TCU if pt is having difficulty.
--- NOTE | 2018-06-21 08:41 | CON ---
Copied To: Alex Meza MD Attending MD: Alex Meza MD DATE: 06/20/2018 HISTORY OF PRESENT ILLNESS: This is a 75-year-old white male with past medical history of atrial fibrillation. The patient also on a seizure medicine, Trileptal. The patient was sitting, watching television, was shaking and feeling like chills. The patient could not say anything. It was a blank face and was not responding and noticed to have urinated on himself and fever of 102.7. The patient also had a fall 2 days ago. PAST MEDICAL HISTORY: AFib and seizures, status post aortic valve replacement and open heart surgery. PHYSICAL EXAMINATION: HEENT: Normocephalic, atraumatic. NECK: Supple. NEUROLOGIC: Awake, orientated to self and place. Cranial nerves II through XII were tested. Pupils reactive. EOM intact. Visual field normal. Spontaneous movement of all the extremities noted. IMPRESSION: A 75-year-old white male with past medical history of atrial fibrillation, aortic valve replacement, open heart surgery and seizure and found by the to be not responding and urinated on himself. The patient also fell 2 days ago. CAT scan of the head was done, did not show any acute pathology. Workup in progress. We will follow up. EEG in the morning. Alex Meza MD
[2018-06-21] MEDS: Potassium & Sodium Phosphate PO SCH ×3 (09:22→17:35)
[2018-06-21] MEDS: levoFLOXacin 750 mg in D5W 750 MG/150 ML BAG IVPB SCH (09:22)
[2018-06-21] MEDS: Digoxin 125 mcg (0.125 mg) Tab PO SCH (09:22)
--- NOTE | 2018-06-21 10:59 | CON ---
Copied To: Mark Tee MD Attending MD: Mark Tee MD DATE: 06/21/2018 INDICATIONS: Seizure at home, chronic atrial fibrillation, coronary artery disease with coronary artery bypass surgery and aortic valve replacement. This is a 77-year-old man well-known to me admitted yesterday after he was found shaking with urinary incontinence and altered mental status at home with fever. Apparently, he fell the day before with some head trauma. He is admitted to Telemetry. This morning, he feels okay but is not quite himself and does not remember all the details of his illness. There is no chest pain or shortness of breath. There is no orthopnea, PND, palpitations, edema, claudication, cough, sputum production, hemoptysis, abdominal pain, nausea, vomiting, diarrhea, constipation or melena. PAST MEDICAL HISTORY: Notable for coronary artery disease with remote coronary artery bypass surgery with aortic valve replacement. He has chronic atrial fibrillation, on warfarin with recent therapeutic results. He has prior history of stroke and is on seizure medications chronically. He has a history of COPD, asbestosis, hyperlipidemia. There is no history of myocardial infarction, congestive heart failure, diabetes or gout. MEDICATIONS AT THE TIME OF ADMISSION: Include sotalol, warfarin, digoxin, aspirin, Flomax, Trileptal. ALLERGIES: TO A COLD MEDICATION WHICH CAUSED RASH. SOCIAL HISTORY: He lives at home with his . He is ambulatory. He does not smoke cigarettes. He does not drink alcohol significantly. FAMILY HISTORY: Noncontributory. REVIEW OF SYSTEMS: The 10-point review of systems, otherwise, unremarkable except as noted above. PHYSICAL EXAMINATION: VITAL SIGNS: He is a well-developed male lying in bed on Telemetry, in no acute distress. He is in atrial fibrillation, 80 beats per minute, currently afebrile. Blood pressure 155/89, respirations 18-20, O2 sat 90-93% on room air. HEENT: Exam reveals no neck vein distention, thyromegaly, carotid bruits. Mucous membranes moist. Conjunctivae pink. NECK: Supple. LUNGS: Lung yao clear. HEART: Reveals an irregular rhythm. Normal first and second heart sounds. Systolic murmur along left sternal border. PMI not palpable. ABDOMEN: Soft. Bowel sounds present. No mass, organomegaly, tenderness, rebound or guarding. No CVA tenderness. No palpable abdominal aortic aneurysm. EXTREMITIES: Revealed no cyanosis, clubbing or edema. NEUROLOGIC: Awake, alert and oriented. SKIN: Warm and dry. No rash or cellulitis. PSYCHIATRIC: Normal as to mood and affect. LABORATORY AND IMAGING: EKG demonstrates atrial fibrillation, ST-T wave changes, LVH, no change from a prior EKG. Chest x-ray reveals pleural-based calcifications. There is cardiomegaly and postop changes. CT scan of the head reveals no evidence of acute intracranial hemorrhage. There is [id number] chronic white matter ischemic changes with scattered chronic bilateral basal nuclei lacunar-type infarcts, etc.; see full report. White count 11,700, hemoglobin 13.1, hematocrit 39.3, platelet count 94,000. PT/INR 27.8 and 2.38 respectively. PTT was 30.4. Blood gas noted. Chemistries noted, unremarkable. BUN 24, creatinine 0.6. Phosphorus was low at 1.4, repeat 2.3. LFTs unremarkable. Troponin 0.11 and 0.08. CK is 64. Urinalysis is abnormal as noted. IMPRESSION: Bradley Encinas is a 77-year-old man with coronary artery bypass surgery and aortic valve replacement; chronic atrial fibrillation, on warfarin therapy with therapeutic values, was found to have shaking, probable seizure with urinary incontinence and altered mental status transiently, admitted to Telemetry with chronic atrial fibrillation and a history of a fall with head trauma the day prior to admission and fever. At this time, he is on Telemetry. He is being monitored. There has been no further seizure activity. No arrhythmia beyond atrial fibrillation has been discovered. His troponins are unremarkable. His EKG is unchanged. He is undergoing neurologic evaluation by Dr. Meza. An EEG is planned. We will continue sotalol and warfarin. We will monitor INRs daily while in the hospital. He is on digoxin, aspirin, Flomax. He is having urologic evaluation by Dr. Marino. He has phosphorus replacement. He is on antibiotics. He has been cultured. There are seizure precautions in place. We will monitor Is and Os. Check stool for occult blood. Review his old records. Obtain an echocardiogram. Continue Telemetry. I will follow along with you. I will make additional recommendations based on his clinical course. Mark Tee MD [facility] # [phone] HEIDE
--- NOTE | 2018-06-21 11:12 | CON ---
Copied To: Lefty Marino MD Attending MD: Lefty Marino MD DATE: 06/21/2018 GENITOURINARY CONSULTATION CHIEF COMPLAINT: Fever and altered mental status. HISTORY OF PRESENT ILLNESS: This is a 77-year-old male, who was seen in his room at [facility]. The patient was at home. He was found unresponsive by his with altered mental status, very high fever and shaking chills. He was brought to the emergency room. There was a question of him having a seizure. During the episode, patient had urinary incontinence. Patient is now awake and answering questions. He reports prior to this he had some symptoms of urinary frequency and urgency. He reports he had been voiding with a decent force of stream. There is a question of whether he has had incontinent episodes in the past. Normally, he has nocturia one to two times per night. He reports he has not had any recent PSA or prostate exams. No history of kidney stones, although he does complain of chronic low back pain. The patient has a history of open heart surgery with valve replacement. He is admitted for evaluation and treatment. He has been started on IV antibiotics for a likely urinary infection and a consultation was then requested. PAST MEDICAL HISTORY: Significant for valvular heart disease, atrial fibrillation, seizures, hard of hearing and BPH. PAST SURGICAL HISTORY: Aortic valve replacement. MEDICATIONS: Currently include acyclovir, Betapace, Coumadin, digoxin, DuoNeb, Ecotrin, Flomax, Levaquin, Merrem, Neutra-Phos, Trileptal, Tylenol and vancomycin. ALLERGIES: ALLERGIC TO COLD MEDICATIONS. FAMILY HISTORY: Noncontributory. SOCIAL HISTORY: No current smoking or EtOH use. REVIEW OF SYSTEMS: Twelve-point review of systems was obtained. Positives as per the HPI. Additionally, feeling somewhat weak and tired. Positive for low back pain and joint pains. Other systems are negative. PHYSICAL EXAMINATION: GENERAL: The patient is awake and alert, answering questions. VITAL SIGNS: He is afebrile, now temp of 98.4; pulse is 80; BP 155/89; respirations 20. NECK: Supple. There is no thyromegaly or adenopathy noted. CHEST: Examination of the chest revealed normal inspiratory effort. CARDIAC: Exam shows an irregular rhythm. ABDOMEN: There is no peripheral edema noted on abdominal exam. The abdomen is soft, nontender, nondistended. There is no hepatosplenomegaly. There is no costovertebral angle tenderness. Bladder is not palpably distended. GENITOURINARY: Phallus is normal. Scrotum is normal. Testes bilaterally descended, nontender, no masses. Epididymis are normal. EXTREMITIES: There is no cyanosis or edema noted. LABORATORY DATA: On laboratory exam, WBC count was 9.9 on admission, has gone up to 11.7. GFR greater than 60. Urinalysis showed positive nitrites, 20-25 rbc's, 2-5 wbc's, moderate bacteria. Blood cultures, no growth after 24 hours. Urine culture, pending. On radiologic exam, no pertinent urologic x-rays were done. IMPRESSION AND PLAN: This is a 77-year-old male admitted with high fever and shaking chills. He is now improved on IV antibiotics. It appears he has a urinary infection, also appears he possibly had a seizure at home. Urologically, the patient apparently reports voiding well at this time. He did have an incontinent episode which could be from a seizure or possibly related to the altered mental status that he had on admission. For now, I would continue workup and treatment of the high fever, continue IV antibiotics as per Infectious Disease. As per his history of benign prostatic hypertrophy, he has been voiding on tamsulosin and I would continue him on that medication for now when medically okay to take that. As for the incontinence, the patient should follow up in my office after discharge to reevaluate his voiding symptoms along with a postvoid residual. Obviously, it would be somewhat expected to have urinary incontinence if the patient had a seizure or possibly was related to the altered mental status associated with the high fever and shaking chills. No acute urologic intervention appears necessary at this time. His glomerular filtration rate is normal and he appears to be emptying his bladder adequately. The patient will follow up with me in the office as an outpatient. Lefty Marino MD
[2018-06-21] MEDS: Vancomycin 1gm in NS 250ml 1 GM/250 ML BAG IVPB SCH (11:48)
--- NOTE | 2018-06-21 18:50 | CP.PCM.CON ---
History of Present Illness - History of Present Illness History of Present Illness: 77 year old male with PMH of atrial fibrillation, aortic valve replacement, seizure disorder, benign prostatic hyperplasia came in to [facility] after he was found to be shaking and was not responding to verbal and tactile stimuli. He was also found to be febrile. There was no note of diarrhea, no vomiting. When the patient arrived in the ED, he was noted to be febrile with some urinary incontinence. He became more awake while in the ED and eventually became fully alert. He is now on the medical floor and he is fully awake and alert. He does not recall being brought to the hospital. He currently denies chills, no nausea or vomiting, no chest pain, no SOB, no headache or dizziness, no cough, no sore throat, no abdominal pain, no diarrhea, no dysuria. Infectious Diseases consult is requested to further evaluate and manage. Review of Systems - Review of Systems All systems: reviewed and no additional remarkable complaints except (as per HPI ) Past Patient History - Infectious Disease Hx of Infectious Diseases: None - Tetanus Immunizations Tetanus Immunization: Unknown - Past Social History Smoking Status: Never Smoked - CARDIAC Hx Pacemaker: No - PULMONARY Hx Respiratory Disorders: No - NEUROLOGICAL Hx Seizures: Yes - HEENT Hx Deafness: Yes ([place]) - RENAL Hx Chronic Kidney Disease: No - ENDOCRINE/METABOLIC Hx Endocrine Disorders: No - HEMATOLOGICAL/ONCOLOGICAL Hx Blood Transfusions: No Hx Blood Transfusion Reaction: No - INTEGUMENTARY Hx Dermatological Problems: No - MUSCULOSKELETAL/RHEUMATOLOGICAL Hx Musculoskeletal Disorders: Yes ([place]) - GASTROINTESTINAL Hx Gastrointestinal Disorders: No - GENITOURINARY/GYNECOLOGICAL Hx Genitourinary Disorders: No - PSYCHIATRIC Hx Emotional Abuse: No Hx Physical Abuse: No Hx Substance Use: No - SURGICAL HISTORY Hx Open Heart Surgery: Yes Hx Valve Replacement: Yes (AVR) - ANESTHESIA Hx Anesthesia: Yes Hx Anesthesia Reactions: No Hx Malignant Hyperthermia: No Meds Allergies/Adverse Reactions: Allergies Allergy/AdvReac Type Severity Reaction Status Date / Time COLD MEDICATIONS Allergy Intermediate RASH Uncoded 07/04/16 11:55 - Medications Medications: Current Medications Acetaminophen (Tylenol 325mg Tab) 650 mg PO Q4H PRN PRN Reason: Fever >100.5 F Last Admin: 06/20/18 16:34 Dose: 650 mg Albuterol/Ipratropium (Duoneb 3 Mg/0.5 Mg (3 Ml) Ud) 3 ml IH [id number] PRN PRN Reason: Shortness of Breath Last Admin: 06/20/18 15:49 Dose: 3 ml Aspirin (Ecotrin) 81 mg PO DAILY [facility] Last Admin: 06/20/18 09:44 Dose: 81 mg Digoxin (Digoxin) 0.125 mg PO DAILY [facility] Last Admin: 06/20/18 12:51 Dose: 0.125 mg Levofloxacin/Dextrose (Levaquin 750mg) 750 mg in 150 mls @ 100 mls/hr IVPB DAILY [facility] PRN Reason: Protocol Stop: 06/27/18 22:04 Last Admin: 06/20/18 23:57 Dose: 100 mls/hr Meropenem (Merrem Iv 1 Gm Premix) 50 mls @ 100 mls/hr IVPB Q8 [facility] PRN Reason: Protocol Stop: 06/28/18 22:05 Last Admin: 06/21/18 05:57 Dose: 100 mls/hr Vancomycin HCl (Vancomycin 1gm) 1 gm in 250 mls @ 167 mls/hr IVPB Q12H [facility] PRN Reason: Protocol Stop: 06/27/18 22:16 Last Admin: 06/20/18 23:53 Dose: 167 mls/hr Acyclovir 750 mg/ Sodium (Chloride) 100 mls @ 100 mls/hr IV Q8 [facility] PRN Reason: Protocol Stop: 06/29/18 22:10 Last Admin: 06/21/18 05:57 Dose: 100 mls/hr Oxcarbazepine (Trileptal) 300 mg PO Q12 [facility] PRN Reason: Protocol Last Admin: 06/20/18 21:28 Dose: 300 mg Potassium Phos/Sodium Phos (Neutra-Phos) 1 pkt PO TID [facility] Stop: 06/23/18 10:01 Last Admin: 06/20/18 17:23 Dose: 1 pkt Sotalol HCl (Betapace) 80 mg PO Q12H [facility] Last Admin: 06/20/18 23:59 Dose: 80 mg Tamsulosin HCl (Flomax) 0.4 mg PO DAILY [facility] Last Admin: 06/20/18 12:44 Dose: 0.4 mg Physical Exam - Constitutional Appears: Chronically Ill - Head Exam Head Exam: NORMAL INSPECTION - Respiratory Exam Respiratory Exam: Decreased Breath Sounds - Cardiovascular Exam Cardiovascular Exam: +S1, +S2 - GI/Abdominal Exam GI & Abdominal Exam: Soft. absent: Tenderness Results - Vital Signs Recent Vital Signs: Last Vital Signs Temp 98.5 F 06/21/18 00:01 Pulse 69 06/21/18 00:01 Resp 20 06/21/18 00:01 BP 151/87 H 06/21/18 00:01 Pulse Ox 92 L 06/21/18 00:01 - Labs Result Diagrams: 06/21/18 05:40 06/21/18 05:40 Labs: Laboratory Results - last 24 hr 06/20/18 06/20/18 06/20/18 09:15 09:30 22:35 WBC RBC Hgb Hct MCV MCH MCHC RDW Plt Count MPV Gran % Lymph % (Auto) Bibb % (Auto) Eos % (Auto) Baso % (Auto) Gran # Lymph # (Auto) Bibb # (Auto) Eos # (Auto) Baso # (Auto) ESR 30 H Troponin I 0.08 D Prostate Specific Ag Digoxin 0.5 L 06/20/18 06/21/18 22:35 05:40 WBC 11.7 H RBC 4.25 Hgb 13.1 L D Hct 39.3 L MCV 92.5 MCH 30.8 MCHC 33.3 RDW 13.6 Plt Count 94 L MPV 9.7 Gran % 86.7 H Lymph % (Auto) 7.4 L Bibb % (Auto) 5.6 Eos % (Auto) 0.2 L Baso % (Auto) 0.1 Gran # 10.14 H Lymph # (Auto) 0.9 L Bibb # (Auto) 0.7 H Eos # (Auto) 0.0 Baso # (Auto) 0.01 ESR Troponin I Prostate Specific Ag 1.7 Digoxin Assessment & Plan - Assessment and Plan (Free Text) Plan: Assessment Consider sepsis due to UTI / pyelonephritis with gram negative bacilli atrial fibrillation aortic valve replacement seizure disorder benign prostatic hyperplasia Plan Patient was started Vancomycin, Merrem, Levaquin and Acyclovir - will keep Merrem and d/c the rest pending identification and sensitivities of the gram negative bacilli in the urine reviewed CT head and CXR (no infiltrates) will monitor clinically
--- NOTE | 2018-06-22 01:21 | CON ---
Copied To: Corina Teixeira MD Attending MD: Corina Teixeira MD DATE: 06/21/2018 REFERRING PHYSICIAN: Nato Smith MD REASON FOR CONSULTATION: Abnormal chest x-ray, short of breath. HISTORY OF PRESENT ILLNESS: This is a 75-year-old gentleman with past medical history significant for valvular heart disease, on anticoagulation, history of seizure disorder, BPH. Apparently had active seizure at home with fever, brought into emergency room, was in postictal, also been having fever, found to have UTI. Presently sitting up in a chair, feels okay. His chest x-ray which is routinely done shows some pleural calcification. He admit to have extensive asbestos exposure 30-40 years ago, but no recent weight loss. No sputum production. PAST MEDICAL HISTORY: As per history of present illness. ALLERGIES: TO COLD MEDICATIONS?. SOCIAL HISTORY: Deny any active smoking or alcohol use. FAMILY HISTORY: No significant cardiopulmonary disease reported. MEDICATIONS: He is on sotalol 80 mg twice a day, Coumadin 5 mg daily, digoxin 0.125 mg daily, DuoNeb every 6 hours p.r.n., Ecotrin 81 mg daily, Flomax 0.4 mg daily, meropenem 1 g IV every 8 hours, K-Phos one pack three times a day, Trileptal 300 mg twice a day, Tylenol p.r.n. REVIEW OF SYSTEMS: No headache, no rhinitis. Denied any cough. Get short of breath on exertion. No chest pain. No nausea, no vomiting, no diarrhea. No leg pain or leg swelling. PHYSICAL EXAMINATION: GENERAL: No acute distress. VITAL SIGNS: Temperature is 98, heart rate 74, respiratory rate is 18, blood pressure 187/97, pulse ox 96% on room air. HEENT: Moist mucous membrane. Crowded airway. NECK: Supple. No JVD. LUNGS: Has fair airflow with rhonchi. HEART: S1, S2. ABDOMEN: Soft, nontender, no organomegaly. EXTREMITIES: No edema. NEUROLOGIC: Awake, alert and follows simple commands. Little hard of hearing though. LABORATORY DATA: Shows hemoglobin 13.1, hematocrit 39.3, WBC 11.7, platelet is 94. INR is 2.38. VBG show pH 7.46, pCO2 of 36, pO2 is 50. Sodium 142, potassium 3.9, chloride 108, bicarbonate 24, BUN 24, creatinine 0.6, glucose 119, calcium is 7.9, phosphorus is 2.3, magnesium is 1.7, AST 24, ALT 31, alk phos is 70. Troponin 0.11. Albumin is 3. C-reactive protein 54, procalcitonin was 9.27. Urine shows nitrites positive, wbc's 2 to 5, digoxin 0.5 and urine Legionella antigen is negative. Urine culture has gram-negative rods which is 100,000 colonies. Blood culture, so far there is no growth. Had a CAT scan of the head done on admission which shows no evidence of acute intracranial hemorrhage, [id number] chronic white matter ischemic changes and scattered chronic bilateral basal nuclei lacunar type infarct, moderate central volume loss, mucoperiosteal inflammatory changes of the parasinuses. Had a chest x-ray done which shows pleural base calcification, both lung bases, right greater than the left. IMPRESSION AND PLAN: Recurrent seizure, valvular heart disease, atrial fibrillation, coronary artery disease, urinary tract infection, has a high procalcitonin. Chest x-ray does not show infiltrate, but does have a pleural calcified plaque. He does have a history of asbestos exposure 30-40 years ago. He is already on broad-spectrum antibiotics, meropenem. Will get CT of the chest to evaluate the lung parenchyma. Continue anticoagulation. I spoke to at bedside. All their questions answered. Thank you and we will follow with you. Corina Teixeira MD
[2018-06-22] MEDS: Meropenem IV 1 gm in NS 50 ML IVPB SCH ×3 (07:00→21:36)
[2018-06-22 07:49] LABS: INR 1.81; PROTHROMBIN TIME 21.1 SECONDS (9.4-12.5)
--- NOTE | 2018-06-22 08:20 | CP.PCM.PN ---
Subjective - Date & Time of Evaluation Date of Evaluation: 06/22/18 Time of Evaluation: 07:00 - Subjective Subjective: Stable on 2R. He feels OK. No CP or SOB. No sz. V/S noted. AF PE: Lungs: clear Cor.: irreg., S1S2, sys murmur Abd.: soft Ext.: no edema Neuro.: alert I/O= 2640/850 Labs: INR = 1.81, trop 8/20 0.11 BC X 2 NG at 48 hrs. Urine C+S: + GNR Objective - Vital Signs/Intake and Output Vital Signs (last 24 hours): Temp Pulse Resp BP Pulse Ox 98.9 F 83 20 173/93 H 93 L 06/22/18 00:01 06/22/18 02:00 06/22/18 00:01 06/22/18 00:01 06/22/18 00:01 Intake and Output: 06/22/18 06/22/18 06:59 18:59 Intake Total 240 Output Total 200 Balance 40 - Medications Medications: Current Medications Acetaminophen (Tylenol 325mg Tab) 650 mg PO Q4H PRN PRN Reason: Fever >100.5 F Last Admin: 06/20/18 16:34 Dose: 650 mg Albuterol/Ipratropium (Duoneb 3 Mg/0.5 Mg (3 Ml) Ud) 3 ml IH [id number] PRN PRN Reason: Shortness of Breath Last Admin: 06/20/18 15:49 Dose: 3 ml Aspirin (Ecotrin) 81 mg PO DAILY [facility] Last Admin: 06/21/18 09:22 Dose: 81 mg Digoxin (Digoxin) 0.125 mg PO DAILY [facility] Last Admin: 06/21/18 09:22 Dose: 0.125 mg Meropenem (Merrem Iv 1 Gm Premix) 50 mls @ 100 mls/hr IVPB Q8 [facility] PRN Reason: Protocol Stop: 06/28/18 22:05 Last Admin: 06/22/18 07:00 Dose: 100 mls/hr Oxcarbazepine (Trileptal) 300 mg PO Q12 [facility] PRN Reason: Protocol Last Admin: 06/21/18 22:12 Dose: 300 mg Potassium Phos/Sodium Phos (Neutra-Phos) 1 pkt PO TID [facility] Stop: 06/23/18 10:01 Last Admin: 06/21/18 17:35 Dose: 1 pkt Sotalol HCl (Betapace) 80 mg PO Q12H [facility] Last Admin: 06/21/18 22:59 Dose: 80 mg Tamsulosin HCl (Flomax) 0.4 mg PO DAILY [facility] Last Admin: 06/21/18 09:22 Dose: 0.4 mg Warfarin Sodium (Coumadin) 4 mg PO 1800 [facility] PRN Reason: Protocol Last Admin: 06/21/18 17:35 Dose: 4 mg - Labs Labs: 06/21/18 05:40 06/21/18 05:40 PT 21.1 SECONDS (9.4-12.5) H 06/22/18 06:30 INR 1.81 06/22/18 06:30 APTT 30.4 Seconds (25.1-36.5) 06/19/18 23:20 Assessment and Plan - Assessment and Plan (Free Text) Assessment: Seizure Fever/UTI/urinary incontinence H/O recent fall at home/head trauma CAD/CABG/AVR Chronic AF on warfarin CVA COPD Asbestos exposure HLD BPH Plan: AB warfarin 6 mg. today monitor INRs daily As per ID, Uro., pulm., neuro. and Dr. Smith. OOB/PT
--- NOTE | 2018-06-22 09:03 | CT ---
Date of service: 06/22/2018 PROCEDURE: CT Chest without contrast HISTORY: lung disease COMPARISON: None available. TECHNIQUE: Contiguous axial images were obtained through the chest without intravenous contrast enhancement. Sagittal and coronal reconstructions were performed. Radiation dose (DLP): 479 mGy-cm. This CT exam was performed using one or more of the following dose reduction techniques: Automated exposure control, adjustment of the mA and/or kV according to patient size, and/or use of iterative reconstruction technique. FINDINGS: LUNGS: Interstitial infiltrates are seen in both upper lobes and the superior segment of the right lower lobe MEDIASTINUM: Unremarkable thoracic aorta. No aneurysm. The mitral valve is heavily calcified. Coronary artery calcifications are seen Main pulmonary artery unremarkable. No vascular congestion. No lymphadenopathy. PLEURA: Small pleural effusions BONES: No fracture. No destructive lesion. UPPER ABDOMEN: Grossly unremarkable. OTHER FINDINGS: None. IMPRESSION: Interstitial infiltrates are seen in both upper lobes and the superior segment of the right lower lobe
--- NOTE | 2018-06-22 09:13 | CP.PCM.PN ---
Addendum entered and electronically signed by Lou Baker DO 06/22/18 14:36 : htn - add hctz Original Note: <Lou Baker - Last Filed: 06/22/18 14:29> Subjective - Date & Time of Evaluation Date of Evaluation: 06/22/18 Time of Evaluation: 09:09 - Subjective Subjective: PGY-[address] Smith Afebrile x 1 day. Still have urinary incontinence. Appetite not good. No other acute complaint Objective - Vital Signs/Intake and Output Vital Signs (last 24 hours): Temp Pulse Resp BP Pulse Ox 98.6 F 89 20 171/93 H 93 L 06/22/18 06:00 06/22/18 06:00 06/22/18 06:00 06/22/18 06:00 06/22/18 00:01 Intake and Output: 06/22/18 06/22/18 06:59 18:59 Intake Total 240 Output Total 200 Balance 40 - Medications Medications: Current Medications Acetaminophen (Tylenol 325mg Tab) 650 mg PO Q4H PRN PRN Reason: Fever >100.5 F Last Admin: 06/20/18 16:34 Dose: 650 mg Albuterol/Ipratropium (Duoneb 3 Mg/0.5 Mg (3 Ml) Ud) 3 ml IH [id number] PRN PRN Reason: Shortness of Breath Last Admin: 06/20/18 15:49 Dose: 3 ml Aspirin (Ecotrin) 81 mg PO DAILY [facility] Last Admin: 06/21/18 09:22 Dose: 81 mg Digoxin (Digoxin) 0.125 mg PO DAILY [facility] Last Admin: 06/21/18 09:22 Dose: 0.125 mg Meropenem (Merrem Iv 1 Gm Premix) 50 mls @ 100 mls/hr IVPB Q8 [facility] PRN Reason: Protocol Stop: 06/28/18 22:05 Last Admin: 06/22/18 07:00 Dose: 100 mls/hr Oxcarbazepine (Trileptal) 300 mg PO Q12 [facility] PRN Reason: Protocol Last Admin: 06/21/18 22:12 Dose: 300 mg Potassium Phos/Sodium Phos (Neutra-Phos) 1 pkt PO TID [facility] Stop: 06/23/18 10:01 Last Admin: 06/21/18 17:35 Dose: 1 pkt Sotalol HCl (Betapace) 80 mg PO Q12H [facility] Last Admin: 06/21/18 22:59 Dose: 80 mg Tamsulosin HCl (Flomax) 0.4 mg PO DAILY [facility] Last Admin: 06/21/18 09:22 Dose: 0.4 mg Warfarin Sodium (Coumadin) 6 mg PO ONCE ONE PRN Reason: Protocol Stop: 06/22/18 18:01 - Labs Labs: 06/21/18 05:40 06/21/18 05:40 PT 21.1 SECONDS (9.4-12.5) H 06/22/18 06:30 INR 1.81 06/22/18 06:30 APTT 30.4 Seconds (25.1-36.5) 06/19/18 23:20 - Constitutional Appears: No Acute Distress - Head Exam Head Exam: ATRAUMATIC, NORMAL INSPECTION, NORMOCEPHALIC - Eye Exam Eye Exam: EOMI, Normal appearance, PERRL. absent: Scleral icterus Pupil Exam: NORMAL ACCOMODATION - ENT Exam ENT Exam: Mucous Membranes Moist - Neck Exam Additional comments: supple - Respiratory Exam Respiratory Exam: Clear to Ausculation Bilateral, NORMAL BREATHING PATTERN. absent: Rales, Rhonchi, Wheezes - Cardiovascular Exam Cardiovascular Exam: REGULAR RHYTHM, +S1, +S2. absent: Murmur - GI/Abdominal Exam GI & Abdominal Exam: Soft, Normal Bowel Sounds. absent: Tenderness - Extremities Exam Extremities Exam: Normal Capillary Refill. absent: Calf Tenderness, Pedal Edema , Tenderness - Back Exam Back Exam: absent: CVA tenderness (L), CVA tenderness (R) - Neurological Exam Neurological Exam: Alert, Awake, Oriented x3 - Psychiatric Exam Psychiatric exam: Normal Affect, Normal Mood - Skin Skin Exam: Dry, Warm Assessment and Plan - Assessment and Plan (Free Text) Plan: Mr Encinas, 75 M, PMHx a fib on warfarin/sotalol and digioxin, aortic valve replacement open heart, seizure. Pt found pt was shaking and non- responsive. noticed pt urinating on himself, which was unusal. Pt had a fall 2 days ago and hit his head. In ED, he had fever 105. he was found to have elevated trops. Shaking with alter mental status likely from high fever r/o breakthrough seizure questionable metabolic encephalopathy from hypophosphatemia - He had urinary incontinent. No bit eddie. CK normal. resolved - CT head: No focal mass or other acute intracranial pathology. Diffuse cerebral volume loss and chronic microvascular white matter changes. Tiny old lacunar infarcts at the left basal ganglia and thalamus. - gambling monitor, seizure/aspiration precaution - Continue home trileptal 300Q12 - Neurology: EEG (06/21) High Fever likely UTI. - fever resolved now Enterobacter-UTI, complicated Gram pos cocci in blood, Questionable contaminent - in setting of trop leaks - U/A: Mod bacteria, + maya est, + nitrate - Chest X-ray shows no acute processes. - urine culture: gram neg jenny - Blood culture: gram pos cocci in pair 1/2 set - Acyclovir, Levofloxacin, merem, vanco --> target to merem and vanco - redraw blood culutre - patient may need SHARLA since patient has aortic valve replaced and patient has bacteremia Thrombocytopenia - likely reactive to fever. continue to trend Questionable PNA? - CT chest: interstial infiltrates both upper lones and superior R lower lobe - Urine Legionella negative New onset urinary incontinence - bladder scan prn - f/u Urology outpatient - PSA Elevated troponin 0.11-->0.08, No chest pain/dizziness - EKG: a fib at [address] Non-specific ST/T wave changes. - Telemetry - Echocardiogram: EF 56. RVSP 58. Moderate MR/TR - cardiology consult Hypophosphatemia - repleted. supplement TID A-fib aortic valve replacement - warfarin/sotalol and digioxin - digoxin level checked - warfarin 6mg tonight Hard of hearing Hx fall x 1 last week; Deconditiong - physical therapy Care planning: Need to wait ID of urine and ID blood culture. s/r/d/w Dr Smith <Nato Smith S - Last Filed: 06/23/18 21:01> Objective - Vital Signs/Intake and Output Vital Signs (last 24 hours): Temp Pulse Resp BP Pulse Ox 98.7 F 113 H 19 132/84 93 L 06/23/18 18:00 06/23/18 18:00 06/23/18 18:00 06/23/18 18:00 06/23/18 06:00 - Medications Medications: Current Medications Acetaminophen (Tylenol 325mg Tab) 650 mg PO Q4H PRN PRN Reason: Fever >100.5 F Last Admin: 06/20/18 16:34 Dose: 650 mg Albuterol/Ipratropium (Duoneb 3 Mg/0.5 Mg (3 Ml) Ud) 3 ml IH [id number] PRN PRN Reason: Shortness of Breath Last Admin: 06/20/18 15:49 Dose: 3 ml Amlodipine Besylate (Norvasc) 5 mg PO DAILY [facility] Last Admin: 06/23/18 09:46 Dose: 5 mg Aspirin (Ecotrin) 81 mg PO DAILY [facility] Last Admin: 06/23/18 09:45 Dose: 81 mg Digoxin (Digoxin) 0.125 mg PO DAILY [facility] Last Admin: 06/23/18 09:46 Dose: 0.125 mg Hydrochlorothiazide (Hydrodiuril) 25 mg PO DAILY [facility] Last Admin: 06/23/18 09:45 Dose: 25 mg Meropenem (Merrem Iv 1 Gm Premix) 50 mls @ 100 mls/hr IVPB Q8 [facility] PRN Reason: Protocol Stop: 06/28/18 22:05 Last Admin: 06/23/18 16:41 Dose: 100 mls/hr Vancomycin HCl (Vancomycin 1gm) 1 gm in 250 mls @ 167 mls/hr IVPB Q12H [facility] PRN Reason: Protocol Last Admin: 06/23/18 09:46 Dose: 167 mls/hr Oxcarbazepine (Trileptal) 300 mg PO Q12 [facility] PRN Reason: Protocol Last Admin: 06/23/18 09:45 Dose: 300 mg Sotalol HCl (Betapace) 80 mg PO Q12H [facility] Last Admin: 06/23/18 11:29 Dose: 80 mg Tamsulosin HCl (Flomax) 0.4 mg PO DAILY [facility] Last Admin: 06/23/18 09:45 Dose: 0.4 mg - Labs Labs: 06/23/18 06:30 06/23/18 06:30 PT 18.6 SECONDS (9.4-12.5) H 06/23/18 06:30 INR 1.60 06/23/18 06:30 APTT 30.4 Seconds (25.1-36.5) 06/19/18 23:20 Assessment and Plan - Assessment and Plan (Free Text) Plan: Pt seen and examined. I have reviewed the note of the medical microbiologist and agree with it. I have discussed the assessment and plan with the resident. I have reviewed the patient's labs and medications. Sepsis with BCx that is positive. ID following. Phosp is improved. On Coumadin for A fib. Pt with IV Abx. Echo reviewed.
[2018-06-22] MEDS: Digoxin 125 mcg (0.125 mg) Tab PO SCH (09:17)
[2018-06-22] MEDS: Potassium & Sodium Phosphate PO SCH ×3 (09:17→18:03)
--- NOTE | 2018-06-22 09:52 | CARD ---
APPROVED REPORT Date of service: 06/21/2018 EXAM: Two-dimensional and M-mode echocardiogram with Doppler and color Doppler. Other Information Quality : AverageRhythm : INDICATION Aortic Valve Disease , Seizure AVR h/ o CVA 2D DIMENSIONS Left Atrium (2D)4.9 (1.6-4.0cm)IVSd1.3 (0.7-1.1cm) LVDd3.8 (3.9-5.9cm)PWd1.3 (0.7-1.1cm) LVDs2.7 (2.5-4.0cm)FS (%) 29.1 % LVEF (%)56.0 (>50%) M-Mode DIMENSIONS Aortic Root3.40 (2.2-3.7cm) Aortic Valve AoV Peak [id number]/Mary Peak GR.24mmHg Mitral Valve E/A ratio0.0 TDI E/Lateral E'0.0E/Medial E'0.0 Tricuspid Valve TR Peak [id number] Peak Gr.48mmHg [id number] LEFT VENTRICLE The left ventricle is normal size. There is mild concentric left ventricular hypertrophy. The left ventricular function is normal. The left ventricular ejection fraction is within the normal range. There is normal LV segmental wall motion. RIGHT VENTRICLE The right ventricle is normal size. ATRIA The left atrium is moderately dilated. The right atrium is moderately dilated. The interatrial septum is intact with no evidence for an atrial septal defect. AORTIC VALVE The AVR is not well visualized, There is a physiological gradient recorded. MITRAL VALVE The mitral valve is moderately thickened. Mitral annular calcification is severe. Mitral regurgitation is moderate. TRICUSPID VALVE The tricuspid valve is normal in structure. There is moderate tricuspid regurgitation. There is moderate-severe pulmonary hypertension. PULMONIC VALVE The pulmonic valve is not well visualized. There is mild pulmonic valvular regurgitation. GREAT VESSELS The aortic root is normal in size. PERICARDIAL EFFUSION There is no pericardial effusion. <Conclusion> The left ventricle is normal size. There is mild concentric left ventricular hypertrophy. The left ventricular function is normal. The AVR is not well visualized, there is a physiological gradient recorded. Mitral regurgitation is moderate. There is moderate tricuspid regurgitation. There is moderate-severe pulmonary hypertension. There is mild pulmonic valvular regurgitation.
[2018-06-22] MEDS: Vancomycin 1gm in NS 250ml 1 GM/250 ML BAG IVPB SCH ×2 (10:23→21:36)
--- NOTE | 2018-06-22 12:30 | CP.PCM.PN ---
Subjective - Date & Time of Evaluation Date of Evaluation: 06/22/18 Time of Evaluation: 11:35 - Subjective Subjective: Comfortable on a chair, no fevers currently, not in distress. No seizure episodes since admission. Objective - Vital Signs/Intake and Output Vital Signs (last 24 hours): Temp Pulse Resp BP Pulse Ox 98.9 F 83 20 173/93 H 93 L 06/22/18 00:01 06/22/18 02:00 06/22/18 00:01 06/22/18 00:01 06/22/18 00:01 Intake and Output: 06/22/18 06/22/18 06:59 18:59 Intake Total 240 Output Total 200 Balance 40 - Medications Medications: Current Medications Acetaminophen (Tylenol 325mg Tab) 650 mg PO Q4H PRN PRN Reason: Fever >100.5 F Last Admin: 06/20/18 16:34 Dose: 650 mg Albuterol/Ipratropium (Duoneb 3 Mg/0.5 Mg (3 Ml) Ud) 3 ml IH [id number] PRN PRN Reason: Shortness of Breath Last Admin: 06/20/18 15:49 Dose: 3 ml Aspirin (Ecotrin) 81 mg PO DAILY [facility] Last Admin: 06/21/18 09:22 Dose: 81 mg Digoxin (Digoxin) 0.125 mg PO DAILY [facility] Last Admin: 06/21/18 09:22 Dose: 0.125 mg Meropenem (Merrem Iv 1 Gm Premix) 50 mls @ 100 mls/hr IVPB Q8 RIC[facility]O PRN Reason: Protocol Stop: 06/28/18 22:05 Last Admin: 06/22/18 07:00 Dose: 100 mls/hr Oxcarbazepine (Trileptal) 300 mg PO Q12 [facility] PRN Reason: Protocol Last Admin: 06/21/18 22:12 Dose: 300 mg Potassium Phos/Sodium Phos (Neutra-Phos) 1 pkt PO TID RICARDO Stop: 06/23/18 10:01 Last Admin: 06/21/18 17:35 Dose: 1 pkt Sotalol HCl (Betapace) 80 mg PO Q12H [facility] Last Admin: 06/21/18 22:59 Dose: 80 mg Tamsulosin HCl (Flomax) 0.4 mg PO DAILY [facility] Last Admin: 06/21/18 09:22 Dose: 0.4 mg Warfarin Sodium (Coumadin) 4 mg PO 1800 RICARDO PRN Reason: Protocol Last Admin: 06/21/18 17:35 Dose: 4 mg - Labs Labs: 06/21/18 05:40 06/21/18 05:40 PT 27.8 SECONDS (9.4-12.5) H 06/21/18 05:40 INR 2.38 06/21/18 05:40 APTT 30.4 Seconds (25.1-36.5) 06/19/18 23:20 - Constitutional Appears: Non-toxic, No Acute Distress, Chronically Ill - Head Exam Head Exam: NORMAL INSPECTION - ENT Exam ENT Exam: Mucous Membranes Moist - Neck Exam Neck Exam: absent: Lymphadenopathy, Meningismus - Respiratory Exam Respiratory Exam: Decreased Breath Sounds - Cardiovascular Exam Cardiovascular Exam: +S1, +S2 - GI/Abdominal Exam GI & Abdominal Exam: Soft. absent: Tenderness Assessment and Plan - Assessment and Plan (Free Text) Plan: Assessment Consider sepsis due to UTI / pyelonephritis with gram negative bacilli, as well as gram positive cocci bacteremia, need to rule out endocarditis atrial fibrillation aortic valve replacement (porcine valve) seizure disorder benign prostatic hyperplasia Plan continue Vancomycin, Merrem and will repeat blood cx pending final blood and urine cx results reviewed CT head and CXR (no infiltrates) but will check CT chest, urine Legionella Ag patient may need SHARLA since patient has aortic valve replaced and patient has bacteremia will continue to monitor clinically
[2018-06-22 13:45] LABS: TOTAL PSA 1.8 ng/mL (< or = 4.0)
[2018-06-23] MEDS: Meropenem IV 1 gm in NS 50 ML IVPB SCH ×3 (05:39→22:44)
[2018-06-23 07:05] LABS: EOS # 0.2 (0.0-0.7); EOS % 2.2 % (1.5-5.0); GRAN # 7.09 (1.4-6.5); GRAN % 78.8 % (50.0-68.0); HEMOGLOBIN 14.1 g/dL (14.0-18.0); LYMPH # 0.9 (1.2-3.4); LYMPH % 9.7 % (22.0-35.0); MEAN CELL VOLUME 90.4 fl (80.0-105.0); MEAN CORPUSCULAR HEMOGLOBIN 31.5 pg (25.0-35.0); MEAN CORPUSCULAR HGB CONC 34.8 g/dl (31.0-37.0); MONO # 0.8 (0.1-0.6); MONO % 9.3 % (1.0-6.0); RBC 4.48 10^6/uL (3.5-6.1); RED CELL DISTRIBUTION WIDTH 13.1 % (11.5-14.5)
[2018-06-23 07:14] LABS: INR 1.6; PROTHROMBIN TIME 18.6 SECONDS (9.4-12.5)
[2018-06-23 07:31] LABS: ALBUMIN 3.1 g/dL (3.0-4.8); ALT/SGPT 38 U/L (7-56); AST/SGOT 43 U/L (17-59); BLOOD UREA NITROGEN 16 mg/dL (7-21); CALCIUM 8.6 mg/dL (8.4-10.5); GFR NON-AFRICAN AMERICAN > 60
--- NOTE | 2018-06-23 08:13 | CP.PCM.PN ---
Subjective - Date & Time of Evaluation Date of Evaluation: 06/23/18 Time of Evaluation: 07:00 - Subjective Subjective: Stable on 2R. He feels OK. No CP or SOB. No sz. V/S noted. AF. No fever. PE: Lungs: clear Cor.: irreg., S1S2, sys murmur Abd.: soft Ext.: no edema Neuro.: alert I/O= 1320/2625 Labs: INR = 1.6, WBC = 9,000 BC X 1 : + GPC, Urine C+S: + Enterobacter Aerogenes Objective - Vital Signs/Intake and Output Vital Signs (last 24 hours): Temp Pulse Resp BP Pulse Ox 98.5 F 100 H 20 153/101 H 93 L 06/23/18 06:00 06/23/18 06:00 06/23/18 06:00 06/23/18 06:00 06/23/18 06:00 Intake and Output: 06/23/18 06/23/18 06:59 18:59 Intake Total 1320 Output Total 2625 Balance -1305 - Medications Medications: Current Medications Acetaminophen (Tylenol 325mg Tab) 650 mg PO Q4H PRN PRN Reason: Fever >100.5 F Last Admin: 06/20/18 16:34 Dose: 650 mg Albuterol/Ipratropium (Duoneb 3 Mg/0.5 Mg (3 Ml) Ud) 3 ml IH [id number] PRN PRN Reason: Shortness of Breath Last Admin: 06/20/18 15:49 Dose: 3 ml Amlodipine Besylate (Norvasc) 5 mg PO DAILY [facility] Aspirin (Ecotrin) 81 mg PO DAILY [facility] Last Admin: 06/22/18 09:17 Dose: 81 mg Digoxin (Digoxin) 0.125 mg PO DAILY [facility] Last Admin: 06/22/18 09:17 Dose: 0.125 mg Hydrochlorothiazide (Hydrodiuril) 25 mg PO DAILY [facility] Last Admin: 06/22/18 11:50 Dose: 25 mg Meropenem (Merrem Iv 1 Gm Premix) 50 mls @ 100 mls/hr IVPB Q8 RICARDO PRN Reason: Protocol Stop: 06/28/18 22:05 Last Admin: 06/23/18 05:39 Dose: 100 mls/hr Vancomycin HCl (Vancomycin 1gm) 1 gm in 250 mls @ 167 mls/hr IVPB Q12H [facility] PRN Reason: Protocol Last Admin: 06/22/18 21:36 Dose: 167 mls/hr Oxcarbazepine (Trileptal) 300 mg PO Q12 RICARDO PRN Reason: Protocol Last Admin: 06/22/18 21:37 Dose: 300 mg Potassium Phos/Sodium Phos (Neutra-Phos) 1 pkt PO TID [facility] Stop: 06/23/18 10:01 Last Admin: 06/22/18 18:03 Dose: 1 pkt Sotalol HCl (Betapace) 80 mg PO Q12H [facility] Last Admin: 06/22/18 23:13 Dose: 80 mg Tamsulosin HCl (Flomax) 0.4 mg PO DAILY [facility] Last Admin: 06/22/18 09:17 Dose: 0.4 mg Warfarin Sodium (Coumadin) 10 mg PO ONCE ONE PRN Reason: Protocol Stop: 06/23/18 10:01 - Labs Labs: 06/23/18 06:30 06/23/18 06:30 PT 18.6 SECONDS (9.4-12.5) H 06/23/18 06:30 INR 1.60 06/23/18 06:30 APTT 30.4 Seconds (25.1-36.5) 06/19/18 23:20 Assessment and Plan - Assessment and Plan (Free Text) Assessment: Seizure Fever/UTI/urinary incontinence BC X1 + GPC (? contaminent, await species). H/O recent fall at home/head trauma CAD/CABG/AVR Chronic AF on warfarin CVA COPD Asbestos exposure HLD BPH Plan: AB warfarin 10 mg. today monitor INRs daily Suggst: Repeat BC X 2 more. If staph aureus in BC, will arrange SHARLA to R/O SBE As per ID, Uro., pulm., neuro. and Dr. Smith. OOB/PT
--- NOTE | 2018-06-23 08:33 | PN ---
Copied To: Corina Teixeira MD Attending MD: Corina Teixeira MD DATE: 06/22/2018 REFERRING PHYSICIAN: Nato Smith MD SUBJECTIVE: He is sitting up in a chair, having dinner. is at bedside. Night was unremarkable. Has some elevated blood pressure. No headache. No rhinitis. No nausea, no vomiting, no diarrhea. No leg pain or leg swelling. OBJECTIVE: GENERAL: In no acute distress. VITAL SIGNS: Temperature is 98, heart rate is 98, respiratory rate is 20, blood pressure 148/98, pulse ox 96% on room air. HEENT: Moist mucous membranes. Crowded airway. Mallampati score is 4. NECK: Supple. No JVD. LUNGS: Has a fair airflow with rhonchi. HEART: S1 and S2. ABDOMEN: Soft and nontender. No organomegaly. EXTREMITIES: No edema. NEUROLOGICAL: Awake, alert, follows simple command. MEDICATIONS: He is on sotalol 80 mg twice a day, digoxin 0.125 mg daily, DuoNeb every 6 hours p.r.n., Ecotrin 81 mg daily, Flomax 0.4 mg daily, hydrochlorothiazide 25 mg daily, meropenem 1 g IV every 8 hours, Neutra-Phos 1 pack 3 times a day, Trileptal 300 mg twice a day, Tylenol p.r.n., vancomycin 1 g IV every 12 hours. LABORATORY DATA: Reviewed and no new lab is available. Urine culture, Enterobacter aerogenes and blood has one out of 2 gram-positive cocci. Has a CT of the chest done today, which shows interstitial infiltrate as seen in both upper lobe and superior segment of the right lower lobe. Has marked pleural effusion. IMPRESSION AND PLAN: Recurrent seizure, valvular heart disease, atrial fibrillation, coronary artery disease, urinary tract infection, one out of 2 blood culture is positive, high procalcitonin, has pneumonitis versus pneumonia, history of asbestos exposure with calcified pleural plaque. Pulmonary point of view, he is doing okay. The patient is already on antibiotics. We will add Norvasc [address] to ensure the stability of pulmonary infiltrate. Thank you and we will follow with you. Mohammad Puneet, MD [facility] # [id number]
[2018-06-23] MEDS: Potassium & Sodium Phosphate PO SCH (09:45)
[2018-06-23] MEDS: Digoxin 125 mcg (0.125 mg) Tab PO SCH (09:46)
[2018-06-23] MEDS: Vancomycin 1gm in NS 250ml 1 GM/250 ML BAG IVPB SCH ×2 (09:46→22:43)
--- NOTE | 2018-06-23 10:15 | PN ---
Copied To: Wale Reno MD Attending MD: Wale Reno MD DATE: 06/23/[address] Smith. SUBJECTIVE: The patient is a 77-year-old white male with a long history of seizure disorder, on Trileptal for many years; chronic atrial fibrillation, taking digoxin, warfarin and sotalol. The patient was admitted with elevated temperature, has positive blood cultures at this time including Enterobacter and gram-positive cocci, which is not identified at this point. The patient initially was admitted with an elevated white count as high as 11.7, he is now 9. Sed rate was 30. The patient is scheduled also for possible SHARLA because of the positive blood cultures and history of atrial fibrillation. The patient did have a C-reactive protein of 54 on admission and PSA was 1.7, prolactin was 9.27. The patient currently is afebrile. He is awake and alert and oriented x3. Temperature is 98.5, blood pressure 153/101, heart rate is slightly elevated 118. The patient is awake and alert and oriented. Physical examination is unchanged. His chest is clear to auscultation and percussion. His heart examination is regular rate with slightly elevated ventricular response. Abdomen is soft. Extremities without cyanosis, clubbing or edema. The patient will be continued on IV antibiotics. Culture will be followed. Possible SHARLA is discussed with Cardiology. Wale Reno MD
--- NOTE | 2018-06-23 10:55 | CP.PCM.PN ---
Subjective - Date & Time of Evaluation Date of Evaluation: 06/23/18 Time of Evaluation: 07:00 - Subjective Subjective: PGY-[address] Reno Occasional chills. no other acute complaints Objective - Vital Signs/Intake and Output Vital Signs (last 24 hours): Temp Pulse Resp BP Pulse Ox 98.5 F 103 H 20 143/82 93 L 06/23/18 06:00 06/23/18 09:46 06/23/18 06:00 06/23/18 09:46 06/23/18 06:00 Intake and Output: 06/23/18 06/23/18 06:59 18:59 Intake Total 1320 Output Total 2625 Balance -1305 - Medications Medications: Current Medications Acetaminophen (Tylenol 325mg Tab) 650 mg PO Q4H PRN PRN Reason: Fever >100.5 F Last Admin: 06/20/18 16:34 Dose: 650 mg Albuterol/Ipratropium (Duoneb 3 Mg/0.5 Mg (3 Ml) Ud) 3 ml IH [id number] PRN PRN Reason: Shortness of Breath Last Admin: 06/20/18 15:49 Dose: 3 ml Amlodipine Besylate (Norvasc) 5 mg PO DAILY [facility] Last Admin: 06/23/18 09:46 Dose: 5 mg Aspirin (Ecotrin) 81 mg PO DAILY [facility] Last Admin: 06/23/18 09:45 Dose: 81 mg Digoxin (Digoxin) 0.125 mg PO DAILY [facility] Last Admin: 06/23/18 09:46 Dose: 0.125 mg Hydrochlorothiazide (Hydrodiuril) 25 mg PO DAILY [facility] Last Admin: 06/23/18 09:45 Dose: 25 mg Meropenem (Merrem Iv 1 Gm Premix) 50 mls @ 100 mls/hr IVPB Q8 RICARDO PRN Reason: Protocol Stop: 06/28/18 22:05 Last Admin: 06/23/18 05:39 Dose: 100 mls/hr Vancomycin HCl (Vancomycin 1gm) 1 gm in 250 mls @ 167 mls/hr IVPB Q12H [facility] PRN Reason: Protocol Last Admin: 06/23/18 09:46 Dose: 167 mls/hr Oxcarbazepine (Trileptal) 300 mg PO Q12 RIC[facility]O PRN Reason: Protocol Last Admin: 06/23/18 09:45 Dose: 300 mg Sotalol HCl (Betapace) 80 mg PO Q12H [facility] Last Admin: 06/22/18 23:13 Dose: 80 mg Tamsulosin HCl (Flomax) 0.4 mg PO DAILY [facility] Last Admin: 06/23/18 09:45 Dose: 0.4 mg - Labs Labs: 06/23/18 06:30 06/23/18 06:30 PT 18.6 SECONDS (9.4-12.5) H 06/23/18 06:30 INR 1.60 06/23/18 06:30 APTT 30.4 Seconds (25.1-36.5) 06/19/18 23:20 - Constitutional Appears: No Acute Distress - Head Exam Head Exam: ATRAUMATIC, NORMAL INSPECTION, NORMOCEPHALIC - Eye Exam Eye Exam: EOMI, Normal appearance, PERRL. absent: Scleral icterus Pupil Exam: NORMAL ACCOMODATION - ENT Exam ENT Exam: Mucous Membranes Moist - Neck Exam Additional comments: supple - Respiratory Exam Respiratory Exam: Decreased Breath Sounds, Clear to Ausculation Bilateral, Rales. absent: Rhonchi, Wheezes - Cardiovascular Exam Cardiovascular Exam: REGULAR RHYTHM, +S1, +S2 - GI/Abdominal Exam GI & Abdominal Exam: Soft, Normal Bowel Sounds. absent: Guarding, Rigid, Tenderness Additional comments: No suprapubic tenderness - Back Exam Back Exam: absent: CVA tenderness (L), CVA tenderness (R) - Neurological Exam Neurological Exam: Alert, Awake, Oriented x3 - Psychiatric Exam Psychiatric exam: Normal Affect, Normal Mood - Skin Skin Exam: Dry, Warm Assessment and Plan - Assessment and Plan (Free Text) Plan: Mr Encinas, 75 M, PMHx a fib on warfarin/sotalol and digioxin, aortic valve replacement open heart, seizure. Pt found pt was shaking and non- responsive. noticed pt urinating on himself, which was unusal. Pt had a fall 2 days ago and hit his head. In ED, he had fever 105. he was found to have elevated trops. Sepsis due to complicated UTI / pyelonephritis with enterobacter aerogenes, as well as sterptococcal bacteremia (06/19), need to rule out endocarditis. Occasional tachycardia fever - resolved - Acyclovir, Levofloxacin, merem, vanco --> target to merem and vanco - redraw blood culture (06/22) - neg x 1d - Per ID: patient may need SHARLA since patient has aortic valve replaced and patient has bacteremia - Per Cardio: If staph aureus in BC, will arrange SHRALA to R/O SBE Shaking with alter mental status likely from high fever r/o breakthrough seizure questionable metabolic encephalopathy from hypophosphatemia - He had urinary incontinent. No bit eddie. CK normal. resolved - CT head: No focal mass or other acute intracranial pathology. Diffuse cerebral volume loss and chronic microvascular white matter changes. Tiny old lacunar infarcts at the left basal ganglia and thalamus. 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 continue to trend - resolved Questionable PNA? - CT chest: interstial infiltrates both upper lones and superior R lower lobe - Urine Legionella negative - Pending pulm rec HTN - add HCTZ. BP improving New onset urinary incontinence - bladder scan prn - f/u Urology outpatient - PSA Elevated troponin 0.11-->0.08, No chest pain/dizziness A-fib aortic valve replacement - EKG: a fib at [address]pm[address] Non-specific ST/T wave changes. - Telemetry - Echocardiogram: EF 56. RVSP 58. Moderate MR/TR - Daily INR for coumadin dose. Goal is between 2-3 - Continue warfarin/sotalol and digioxin Hypophosphatemia - repleted. supplement TID Hard of hearing Hx fall x 1 last week; Deconditiong - physical therapy Care planning: Need to wait ID of urine and ID blood culture. PT: home s/r/d/w Dr Reno
--- NOTE | 2018-06-23 10:55 | CP.PCM.PN ---
<Toya Mejia - Last Filed: 06/23/18 13:12> Subjective - Date & Time of Evaluation Date of Evaluation: 06/23/18 Time of Evaluation: 09:00 - Subjective Subjective: PGY-3 Infectious disease progress note for Dr. Yen's service patient seen and examined at bedside, n o acute distress. Patient states that he is doing well. He denies fever, chills, abd apin, n/v, diarrhea, dysuria, chest pain sob. Patient is tolerating diet. Objective - Vital Signs/Intake and Output Vital Signs (last 24 hours): Temp Pulse Resp BP Pulse Ox 98.5 F 103 H 20 143/82 93 L 06/23/18 06:00 06/23/18 09:46 06/23/18 06:00 06/23/18 09:46 06/23/18 06:00 Intake and Output: 06/23/18 06/23/18 06:59 18:59 Intake Total 1320 Output Total 2625 Balance -1305 - Medications Medications: Current Medications Acetaminophen (Tylenol 325mg Tab) 650 mg PO Q4H PRN PRN Reason: Fever >100.5 F Last Admin: 06/20/18 16:34 Dose: 650 mg Albuterol/Ipratropium (Duoneb 3 Mg/0.5 Mg (3 Ml) Ud) 3 ml IH [id number] PRN PRN Reason: Shortness of Breath Last Admin: 06/20/18 15:49 Dose: 3 ml Amlodipine Besylate (Norvasc) 5 mg PO DAILY [facility] Last Admin: 06/23/18 09:46 Dose: 5 mg Aspirin (Ecotrin) 81 mg PO DAILY [facility] Last Admin: 06/23/18 09:45 Dose: 81 mg Digoxin (Digoxin) 0.125 mg PO DAILY [facility] Last Admin: 06/23/18 09:46 Dose: 0.125 mg Hydrochlorothiazide (Hydrodiuril) 25 mg PO DAILY [facility] Last Admin: 06/23/18 09:45 Dose: 25 mg Meropenem (Merrem Iv 1 Gm Premix) 50 mls @ 100 mls/hr IVPB Q8 RICARDO PRN Reason: Protocol Stop: 06/28/18 22:05 Last Admin: 06/23/18 05:39 Dose: 100 mls/hr Vancomycin HCl (Vancomycin 1gm) 1 gm in 250 mls @ 167 mls/hr IVPB Q12H [facility] PRN Reason: Protocol Last Admin: 06/23/18 09:46 Dose: 167 mls/hr Oxcarbazepine (Trileptal) 300 mg PO Q12 [facility] PRN Reason: Protocol Last Admin: 06/23/18 09:45 Dose: 300 mg Sotalol HCl (Betapace) 80 mg PO Q12H [facility] Last Admin: 06/22/18 23:13 Dose: 80 mg Tamsulosin HCl (Flomax) 0.4 mg PO DAILY [facility] Last Admin: 06/23/18 09:45 Dose: 0.4 mg - Labs Labs: 06/23/18 06:30 06/23/18 06:30 PT 18.6 SECONDS (9.4-12.5) H 06/23/18 06:30 INR 1.60 06/23/18 06:30 APTT 30.4 Seconds (25.1-36.5) 06/19/18 23:20 - Constitutional Appears: No Acute Distress - Head Exam Head Exam: ATRAUMATIC, NORMAL INSPECTION, NORMOCEPHALIC - Eye Exam Eye Exam: EOMI, Normal appearance - ENT Exam ENT Exam: Mucous Membranes Moist - Respiratory Exam Respiratory Exam: Clear to Ausculation Bilateral, NORMAL BREATHING PATTERN. absent: Decreased Breath Sounds, Rales, Rhonchi, Wheezes, Respiratory Distress - Cardiovascular Exam Cardiovascular Exam: REGULAR RHYTHM, +S1, +S2. absent: Bradycardia, Tachycardia , Murmur - GI/Abdominal Exam GI & Abdominal Exam: Soft, Normal Bowel Sounds. absent: Distended, Firm, Tenderness - Extremities Exam Extremities Exam: Normal Inspection. absent: Pedal Edema, Tenderness - Neurological Exam Neurological Exam: Alert, Awake, Oriented x3 - Skin Skin Exam: Dry, Intact, Normal Color, Warm Assessment and Plan - Assessment and Plan (Free Text) Assessment: 77 yo male with PMH of atrial fibrillation, aortic valve replacement (porcine valve), seizure disorder, benign prostatic hyperplasia presented with sepsis due to UTI / pyelonephritis with enterobacter aerogenes, as well as gram positive cocci bacteremia, need to rule out endocarditis. TTE did not show ang vegataion. Follow up final results of blood cultures as well as repeart blood cultures. Continue Vancomycin, Merrem. CT chest showed interstital infiltrates seen in both upper and lower lobes. urine Legionella Ag is negative. patient may need SHARLA since patient has aortic valve replaced and patient has bacteremia. will continue to monitor clinically case reviewed and discussed with attending <Cayetano Yen - Last Filed: 06/23/18 14:49> Objective - Vital Signs/Intake and Output Vital Signs (last 24 hours): Temp Pulse Resp BP Pulse Ox 98.2 F 103 H 19 148/98 H 93 L 06/23/18 11:58 06/23/18 11:29 06/23/18 11:58 06/23/18 11:29 06/23/18 06:00 Intake and Output: 06/23/18 06/23/18 06:59 18:59 Intake Total 1320 Output Total 2625 Balance -1305 - Medications Medications: Current Medications Acetaminophen (Tylenol 325mg Tab) 650 mg PO Q4H PRN PRN Reason: Fever >100.5 F Last Admin: 06/20/18 16:34 Dose: 650 mg Albuterol/Ipratropium (Duoneb 3 Mg/0.5 Mg (3 Ml) Ud) 3 ml IH [id number] PRN PRN Reason: Shortness of Breath Last Admin: 06/20/18 15:49 Dose: 3 ml Amlodipine Besylate (Norvasc) 5 mg PO DAILY [facility] Last Admin: 06/23/18 09:46 Dose: 5 mg Aspirin (Ecotrin) 81 mg PO DAILY [facility] Last Admin: 06/23/18 09:45 Dose: 81 mg Digoxin (Digoxin) 0.125 mg PO DAILY [facility] Last Admin: 06/23/18 09:46 Dose: 0.125 mg Hydrochlorothiazide (Hydrodiuril) 25 mg PO DAILY [facility] Last Admin: 06/23/18 09:45 Dose: 25 mg Meropenem (Merrem Iv 1 Gm Premix) 50 mls @ 100 mls/hr IVPB Q8 [facility]ICARDO PRN Reason: Protocol Stop: 06/28/18 22:05 Last Admin: 06/23/18 05:39 Dose: 100 mls/hr Vancomycin HCl (Vancomycin 1gm) 1 gm in 250 mls @ 167 mls/hr IVPB Q12H [facility] PRN Reason: Protocol Last Admin: 06/23/18 09:46 Dose: 167 mls/hr Oxcarbazepine (Trileptal) 300 mg PO Q12 [facility] PRN Reason: Protocol Last Admin: 06/23/18 09:45 Dose: 300 mg Sotalol HCl (Betapace) 80 mg PO Q12H [facility] Last Admin: 06/23/18 11:29 Dose: 80 mg Tamsulosin HCl (Flomax) 0.4 mg PO DAILY [facility] Last Admin: 06/23/18 09:45 Dose: 0.4 mg - Labs Labs: 06/23/18 06:30 06/23/18 06:30 PT 18.6 SECONDS (9.4-12.5) H 06/23/18 06:30 INR 1.60 06/23/18 06:30 APTT 30.4 Seconds (25.1-36.5) 06/19/18 23:20 Assessment and Plan - Assessment and Plan (Free Text) Assessment: Infectious Diseases Attending Physician Addendum Patient seen and examined, discussed with medical nurse. I have reviewed the pertinent clinical information for the patient, including history of present illness, medical, personal and social histories, lab results and imaging findings. I agree with the above findings, assessment and plan. In addition, will continue Vancomycin and Merrem for this patient with sepsis due to UTI with Enterobacter and Strep bacteremia, source to be determined. Follow up final identification and sensitivities of the Strep in the blood and follow up repeat blood cx results (samples taken yesterday).
--- NOTE | 2018-06-23 17:15 | PN ---
Copied To: Corina Teixeira MD Attending MD: Corina Teixeira MD DATE: 06/23/2018 PULMONARY PROGRESS NOTE REFERRING PHYSICIAN: Nato Smith MD SUBJECTIVE: He is sitting up in a chair. Night was unremarkable. Feels a little better. No headache, no rhinitis, no cough, no nausea, no vomiting or diarrhea. No leg pain or leg swelling. OBJECTIVE: GENERAL: In no acute distress. VITAL SIGNS: Temperature is 98, heart rate is 103, respiratory rate is 20, blood pressure is 148/98, pulse ox is 98% on room air. HEENT: Moist mucous membranes. Crowded airway. NECK: Supple. No JVD. LUNGS: Fair airflow with rhonchi. HEART: S1 and S2. ABDOMEN: Soft and nontender. No organomegaly. EXTREMITIES: No edema. NEUROLOGIC: Awake and alert. Follow simple commands. MEDICATIONS: He is on Betapace 80 mg twice a day, digoxin 0.125 mg daily, DuoNeb every 6 hours p.r.n., Ecotrin 81 mg daily, Flomax 0.4 mg daily, hydrochlorothiazide 25 mg daily, meropenem 1 g IV every 8 hours, Norvasc 5 mg daily, also on oxcarbazepine 300 mg every 12 hours, Tylenol p.r.n., and vancomycin 1 g IV every 12 hours. LABORATORY DATA: Shows hemoglobin 14.1, hematocrit 40.5, WBC 9, and platelet count is 127. His INR is 1.6. Sodium 141, potassium of 3.8, chloride 102, bicarbonate . BUN is 16, creatinine 0.6. Calcium is 8.6, phosphorus is 3.3, magnesium 1.8. AST 43, ALT 38, alkaline phosphatase is 79. Albumin is 3.1. Urine culture has Enterococcus aeruginosa. CAT scan of the chest is done yesterday, which shows interstitial infiltrates are seen in the both upper lobe and the superior segment of the right lower lobe. IMPRESSION AND PLAN: Recurrent seizure, valvular heart disease, atrial fibrillation, coronary artery disease, urinary tract infection, pneumonitis, and a high procalcitonin may be it is a pneumonia, but the patient does have exposure to asbestos about 35 to 40 years ago. Pulmonary point of view, doing okay. Continue antibiotics. Norvasc added yesterday for blood pressure. Outpatient need followup CT to assure the stability of interstitial infiltrate. Thank you and we will follow with you. Corina Teixeira MD
[2018-06-24] MEDS: Meropenem IV 1 gm in NS 50 ML IVPB SCH ×3 (05:40→22:14)
[2018-06-24 06:55] LABS: INR 2.01; PROTHROMBIN TIME 23.4 SECONDS (9.4-12.5)
[2018-06-24 07:40] LABS: BASO # 0.02 K/mm3 (0.0-2.0); BASO % 0.2 % (0.0-3.0); EOS # 0.3 (0.0-0.7); EOS % 3.2 % (1.5-5.0); GRAN # 7.66 (1.4-6.5); GRAN % 75.1 % (50.0-68.0); HEMOGLOBIN 14.3 g/dL (14.0-18.0); LYMPH # 0.9 (1.2-3.4); LYMPH % 9.1 % (22.0-35.0); MEAN CELL VOLUME 90.9 fl (80.0-105.0); MEAN CORPUSCULAR HEMOGLOBIN 31.8 pg (25.0-35.0); MEAN PLATELET VOLUME 10.3 fl (7.0-11.0); MONO # 1.3 (0.1-0.6); MONO % 12.4 % (1.0-6.0); RBC 4.5 10^6/uL (3.5-6.1); RED CELL DISTRIBUTION WIDTH 13.1 % (11.5-14.5); WHITE BLOOD COUNT 10.2 10^3/ul (4.5-11.0)
--- NOTE | 2018-06-24 07:42 | CP.PCM.PN ---
Subjective - Date & Time of Evaluation Date of Evaluation: 06/24/18 Time of Evaluation: 07:00 - Subjective Subjective: Stable on 2R. He feels OK. No CP or SOB. No sz. V/S noted. AF. No fever. PE: Lungs: clear Cor.: irreg., S1S2, sys murmur Abd.: soft Ext.: no edema Neuro.: alert I/O= 710/1300 Labs: INR = 2.1 BC X 1 : + GPC- probably Strept. Urine C+S: + Enterobacter Aerogenes BC X 2 additional: NG at 24 hrs. Objective - Vital Signs/Intake and Output Vital Signs (last 24 hours): Temp Pulse Resp BP Pulse Ox 98.6 F 109 H 20 143/70 96 06/24/18 06:00 06/24/18 06:00 06/24/18 06:00 06/24/18 06:00 06/24/18 06:00 Intake and Output: 06/24/18 06/24/18 06:59 18:59 Intake Total 710 Output Total 1300 Balance -590 - Medications Medications: Current Medications Acetaminophen (Tylenol 325mg Tab) 650 mg PO Q4H PRN PRN Reason: Fever >100.5 F Last Admin: 06/20/18 16:34 Dose: 650 mg Albuterol/Ipratropium (Duoneb 3 Mg/0.5 Mg (3 Ml) Ud) 3 ml IH [id number] PRN PRN Reason: Shortness of Breath Last Admin: 06/20/18 15:49 Dose: 3 ml Amlodipine Besylate (Norvasc) 5 mg PO DAILY [facility] Last Admin: 06/23/18 09:46 Dose: 5 mg Aspirin (Ecotrin) 81 mg PO DAILY [facility] Last Admin: 06/23/18 09:45 Dose: 81 mg Digoxin (Digoxin) 0.125 mg PO DAILY [facility] Last Admin: 06/23/18 09:46 Dose: 0.125 mg Hydrochlorothiazide (Hydrodiuril) 25 mg PO DAILY [facility] Last Admin: 06/23/18 09:45 Dose: 25 mg Meropenem (Merrem Iv 1 Gm Premix) 50 mls @ 100 mls/hr IVPB Q8 [facility] PRN Reason: Protocol Stop: 06/28/18 22:05 Last Admin: 06/24/18 05:40 Dose: 100 mls/hr Vancomycin HCl (Vancomycin 1gm) 1 gm in 250 mls @ 167 mls/hr IVPB Q12H [facility] PRN Reason: Protocol Last Admin: 06/23/18 22:43 Dose: 167 mls/hr Oxcarbazepine (Trileptal) 300 mg PO Q12 [facility] PRN Reason: Protocol Last Admin: 06/23/18 22:43 Dose: 300 mg Sotalol HCl (Betapace) 80 mg PO Q12H [facility] Last Admin: 06/23/18 22:44 Dose: 80 mg Tamsulosin HCl (Flomax) 0.4 mg PO DAILY [facility] Last Admin: 06/23/18 09:45 Dose: 0.4 mg - Labs Labs: 06/23/18 06:30 06/23/18 06:30 PT 23.4 SECONDS (9.4-12.5) H 06/24/18 06:30 INR 2.01 06/24/18 06:30 APTT 30.4 Seconds (25.1-36.5) 06/19/18 23:20 Assessment and Plan - Assessment and Plan (Free Text) Assessment: Seizure Fever/UTI/urinary incontinence BC X1 + GPC (? contaminent, await species, probably Streptococcus). H/O recent fall at home/head trauma CAD/CABG/AVR Chronic AF on warfarin CVA COPD Asbestos exposure HLD BPH Plan: AB warfarin 5 mg. today monitor INRs daily If staph aureus/Strept. in BC, will arrange SHARLA to R/O SBE, early next week. As per ID, Uro., pulm., neuro. and Dr. Smith/medical team. OOB/PT
[2018-06-24 08:04] LABS: ALB/GLOB RATIO 0.9 (1.1-1.8); ALBUMIN 3.4 g/dL (3.0-4.8); ALT/SGPT 44 U/L (7-56); AST/SGOT 52 U/L (17-59); BLOOD UREA NITROGEN 18 mg/dL (7-21); CALCIUM 8.8 mg/dL (8.4-10.5); GFR NON-AFRICAN AMERICAN > 60
--- NOTE | 2018-06-24 08:37 | CP.PCM.PN ---
<Lou Baker - Last Filed: 06/24/18 09:48> Subjective - Date & Time of Evaluation Date of Evaluation: 06/24/18 Time of Evaluation: 08:33 - Subjective Subjective: PGY-[address] Smith (+) chills, BM 2 days ago. (+) burning when urinating/dysuria Tele: A fib 140s to jun 48 Denies CP, palpitation, dizziness, BENJAMIN, N/V/D/C Objective - Vital Signs/Intake and Output Vital Signs (last 24 hours): Temp Pulse Resp BP Pulse Ox 98.6 F 109 H 20 143/70 96 06/24/18 06:00 06/24/18 06:00 06/24/18 06:00 06/24/18 06:00 06/24/18 06:00 Intake and Output: 06/24/18 06/24/18 06:59 18:59 Intake Total 710 Output Total 1300 Balance -590 - Medications Medications: Current Medications Acetaminophen (Tylenol 325mg Tab) 650 mg PO Q4H PRN PRN Reason: Fever >100.5 F Last Admin: 06/20/18 16:34 Dose: 650 mg Albuterol/Ipratropium (Duoneb 3 Mg/0.5 Mg (3 Ml) Ud) 3 ml IH [id number] PRN PRN Reason: Shortness of Breath Last Admin: 06/20/18 15:49 Dose: 3 ml Amlodipine Besylate (Norvasc) 5 mg PO DAILY [facility] Last Admin: 06/23/18 09:46 Dose: 5 mg Aspirin (Ecotrin) 81 mg PO DAILY [facility] Last Admin: 06/23/18 09:45 Dose: 81 mg Digoxin (Digoxin) 0.125 mg PO DAILY [facility] Last Admin: 06/23/18 09:46 Dose: 0.125 mg Hydrochlorothiazide (Hydrodiuril) 25 mg PO DAILY [facility] Last Admin: 06/23/18 09:45 Dose: 25 mg Meropenem (Merrem Iv 1 Gm Premix) 50 mls @ 100 mls/hr IVPB Q8 [facility] PRN Reason: Protocol Stop: 06/28/18 22:05 Last Admin: 06/24/18 05:40 Dose: 100 mls/hr Vancomycin HCl (Vancomycin 1gm) 1 gm in 250 mls @ 167 mls/hr IVPB Q12H [facility] PRN Reason: Protocol Last Admin: 06/23/18 22:43 Dose: 167 mls/hr Oxcarbazepine (Trileptal) 300 mg PO Q12 [facility] PRN Reason: Protocol Last Admin: 06/23/18 22:43 Dose: 300 mg Sotalol HCl (Betapace) 80 mg PO Q12H [facility] Last Admin: 06/23/18 22:44 Dose: 80 mg Tamsulosin HCl (Flomax) 0.4 mg PO DAILY [facility] Last Admin: 06/23/18 09:45 Dose: 0.4 mg Warfarin Sodium (Coumadin) 5 mg PO 1800 [facility] PRN Reason: Protocol - Labs Labs: 06/24/18 06:30 06/24/18 06:30 PT 23.4 SECONDS (9.4-12.5) H 06/24/18 06:30 INR 2.01 06/24/18 06:30 APTT 30.4 Seconds (25.1-36.5) 06/19/18 23:20 - Constitutional Appears: No Acute Distress - Head Exam Head Exam: ATRAUMATIC, NORMAL INSPECTION, NORMOCEPHALIC - Eye Exam Eye Exam: EOMI, Normal appearance, PERRL. absent: Scleral icterus Pupil Exam: NORMAL ACCOMODATION - ENT Exam ENT Exam: Mucous Membranes Moist - Neck Exam Additional comments: supple - Respiratory Exam Respiratory Exam: Clear to Ausculation Bilateral, NORMAL BREATHING PATTERN. absent: Rales, Rhonchi, Wheezes - Cardiovascular Exam Cardiovascular Exam: REGULAR RHYTHM, +S1, +S2. absent: Murmur - GI/Abdominal Exam GI & Abdominal Exam: Soft, Normal Bowel Sounds. absent: Tenderness Additional comments: No suprapubic pain - Extremities Exam Extremities Exam: Normal Capillary Refill. absent: Calf Tenderness, Pedal Edema , Tenderness - Back Exam Back Exam: absent: CVA tenderness (L), CVA tenderness (R) - Neurological Exam Neurological Exam: Alert, Awake, Oriented x3 Neuro motor strength exam: Left Upper Extremity: 5, Right Upper Extremity: 5, Left Lower Extremity: 5, Right Lower Extremity: 5 - Psychiatric Exam Psychiatric exam: Normal Affect, Normal Mood - Skin Skin Exam: Dry, Warm Assessment and Plan - Assessment and Plan (Free Text) Plan: Mr Encinas, 75 M, PMHx a fib on warfarin/sotalol and digioxin, aortic valve replacement open heart, seizure. Pt found pt was shaking and non- responsive. noticed pt urinating on himself, which was unusal. Pt had a fall 2 days ago and hit his head. In ED, he had fever 105. he was found to have elevated trops. Sepsis due to complicated UTI / pyelonephritis with enterobacter aerogenes, as well as sterptococcal bacteremia with gram neg jenny(06/19), need to rule out endocarditis. Occasional tachycardia fever - resolved - merem and vanco - redraw blood culture (06/22) - neg x 1d - Per ID: patient may need SHARLA since patient has aortic valve replaced and patient has bacteremia - Per Cardio: If staph aureus in BC, will arrange SHARLA to R/O SBE early next week Shaking with alter mental status likely from high fever r/o breakthrough seizure questionable metabolic encephalopathy from hypophosphatemia - He had urinary incontinent. No bit eddie. CK normal. resolved - CT head: No focal mass or other acute intracranial pathology. Diffuse cerebral volume loss and chronic microvascular white matter changes. Tiny old lacunar infarcts at the left basal ganglia and thalamus. 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 continue to trend - resolved Questionable PNA? Past exposure to abestos - CT chest: interstial infiltrates both upper lones and superior R lower lobe - Urine Legionella negative - procalc 9.27 - pulm rec: outpatient f/u CT chest for interstitial infiltrates HTN - add HCTZ. BP improving New onset urinary incontinence - bladder scan prn - f/u Urology outpatient - PSA pending Elevated troponin 0.11-->0.08, No chest pain/dizziness A-fib, occasional HR 140s aortic valve replacement - EKG: a fib at [address] bpm[address] Non-specific ST/T wave changes. - Telemetry - Echocardiogram: EF 56. RVSP 58. Moderate MR/TR - Daily INR for coumadin dose. Goal is between 2-3 - Continue warfarin/sotalol and digioxin per cardio. no need to adjust dose for now Hypophosphatemia - repleted. supplement TID Hard of hearing Hx fall x 1 last week; Deconditiong - physical therapy Care planning: Need to wait ID of urine and ID blood culture. PT: home s/r/d/w Dr Smith <Nato Smith S - Last Filed: 06/24/18 14:22> Objective - Vital Signs/Intake and Output Vital Signs (last 24 hours): Temp Pulse Resp BP Pulse Ox 98 F 60 18 105/65 96 06/24/18 12:00 06/24/18 12:00 06/24/18 12:00 06/24/18 12:00 06/24/18 06:00 Intake and Output: 06/24/18 06/24/18 06:59 18:59 Intake Total 710 Output Total 1300 Balance -590 - Medications Medications: Current Medications Acetaminophen (Tylenol 325mg Tab) 650 mg PO Q4H PRN PRN Reason: Fever >100.5 F Last Admin: 06/20/18 16:34 Dose: 650 mg Albuterol/Ipratropium (Duoneb 3 Mg/0.5 Mg (3 Ml) Ud) 3 ml IH [id number] PRN PRN Reason: Shortness of Breath Last Admin: 06/20/18 15:49 Dose: 3 ml Amlodipine Besylate (Norvasc) 5 mg PO DAILY [facility] Last Admin: 06/24/18 10:15 Dose: 5 mg Aspirin (Ecotrin) 81 mg PO DAILY [facility] Last Admin: 06/24/18 10:15 Dose: 81 mg Digoxin (Digoxin) 0.125 mg PO DAILY [facility] Last Admin: 06/24/18 10:15 Dose: 0.125 mg Hydrochlorothiazide (Hydrodiuril) 25 mg PO DAILY [facility] Last Admin: 06/24/18 10:16 Dose: 25 mg Meropenem (Merrem Iv 1 Gm Premix) 50 mls @ 100 mls/hr IVPB Q8 [facility] PRN Reason: Protocol Stop: 06/28/18 22:05 Last Admin: 06/24/18 13:25 Dose: 100 mls/hr Vancomycin HCl (Vancomycin 1gm) 1 gm in 250 mls @ 167 mls/hr IVPB Q12H [facility] PRN Reason: Protocol Last Admin: 06/24/18 10:14 Dose: 167 mls/hr Oxcarbazepine (Trileptal) 300 mg PO Q12 [facility] PRN Reason: Protocol Last Admin: 06/24/18 10:15 Dose: 300 mg Sotalol HCl (Betapace) 80 mg PO Q12H [facility] Last Admin: 06/24/18 11:20 Dose: 80 mg Tamsulosin HCl (Flomax) 0.4 mg PO DAILY [facility] Last Admin: 06/24/18 10:15 Dose: 0.4 mg Warfarin Sodium (Coumadin) 5 mg PO 1800 [facility] PRN Reason: Protocol - Labs Labs: 06/24/18 06:30 06/24/18 06:30 PT 23.4 SECONDS (9.4-12.5) H 06/24/18 06:30 INR 2.01 06/24/18 06:30 APTT 30.4 Seconds (25.1-36.5) 06/19/18 23:20 Assessment and Plan - Assessment and Plan (Free Text) Plan: Pt seen and examined. I have reviewed the note of the clinical medical assistant and agree with it. I have discussed the assessment and plan with the resident. I have reviewed the patient's labs and medications. Pt is tachy at times. He has A fib. He has a hx of AVR. Pt is on Coumadin and Sotalol as well as Digoxin. Cardio is following. He is able to ambulate. Echo has been reviewed. Phosp replaced.
[2018-06-24] MEDS: Vancomycin 1gm in NS 250ml 1 GM/250 ML BAG IVPB SCH ×2 (10:14→23:00)
[2018-06-24] MEDS: Digoxin 125 mcg (0.125 mg) Tab PO SCH (10:15)
[2018-06-24 10:17] VITALS: PULSE 99
--- NOTE | 2018-06-24 12:41 | CP.PCM.PN ---
<Toya Mejia - Last Filed: 06/24/18 14:13> Subjective - Date & Time of Evaluation Date of Evaluation: 06/24/18 Time of Evaluation: 09:00 - Subjective Subjective: PGY-3 Infectious disease progress note for Dr. Yen's service Patient seen and examined at bedside, no acute distress. Patient states that he is doing well. He denies fever, chills, abd pain, n/v, diarrhea, dysuria, chest pain sob. Patient is tolerating diet. Objective - Vital Signs/Intake and Output Vital Signs (last 24 hours): Temp Pulse Resp BP Pulse Ox 98 F 60 18 105/65 96 06/24/18 12:00 06/24/18 12:00 06/24/18 12:00 06/24/18 12:00 06/24/18 06:00 Intake and Output: 06/24/18 06/24/18 06:59 18:59 Intake Total 710 Output Total 1300 Balance -590 - Medications Medications: Current Medications Acetaminophen (Tylenol 325mg Tab) 650 mg PO Q4H PRN PRN Reason: Fever >100.5 F Last Admin: 06/20/18 16:34 Dose: 650 mg Albuterol/Ipratropium (Duoneb 3 Mg/0.5 Mg (3 Ml) Ud) 3 ml IH [id number] PRN PRN Reason: Shortness of Breath Last Admin: 06/20/18 15:49 Dose: 3 ml Amlodipine Besylate (Norvasc) 5 mg PO DAILY [facility] Last Admin: 06/24/18 10:15 Dose: 5 mg Aspirin (Ecotrin) 81 mg PO DAILY [facility] Last Admin: 06/24/18 10:15 Dose: 81 mg Digoxin (Digoxin) 0.125 mg PO DAILY [facility] Last Admin: 06/24/18 10:15 Dose: 0.125 mg Hydrochlorothiazide (Hydrodiuril) 25 mg PO DAILY [facility] Last Admin: 06/24/18 10:16 Dose: 25 mg Meropenem (Merrem Iv 1 Gm Premix) 50 mls @ 100 mls/hr IVPB Q8 [facility] PRN Reason: Protocol Stop: 06/28/18 22:05 Last Admin: 06/24/18 05:40 Dose: 100 mls/hr Vancomycin HCl (Vancomycin 1gm) 1 gm in 250 mls @ 167 mls/hr IVPB Q12H [facility] PRN Reason: Protocol Last Admin: 06/24/18 10:14 Dose: 167 mls/hr Oxcarbazepine (Trileptal) 300 mg PO Q12 [facility] PRN Reason: Protocol Last Admin: 06/24/18 10:15 Dose: 300 mg Sotalol HCl (Betapace) 80 mg PO Q12H [facility] Last Admin: 06/24/18 11:20 Dose: 80 mg Tamsulosin HCl (Flomax) 0.4 mg PO DAILY [facility] Last Admin: 06/24/18 10:15 Dose: 0.4 mg Warfarin Sodium (Coumadin) 5 mg PO 1800 [facility] PRN Reason: Protocol - Labs Labs: 06/24/18 06:30 06/24/18 06:30 PT 23.4 SECONDS (9.4-12.5) H 06/24/18 06:30 INR 2.01 06/24/18 06:30 APTT 30.4 Seconds (25.1-36.5) 06/19/18 23:20 - Additional Findings Additional findings: - Constitutional Appears: No Acute Distress - Head Exam Head Exam: ATRAUMATIC, NORMAL INSPECTION, NORMOCEPHALIC - Eye Exam Eye Exam: EOMI, Normal appearance - ENT Exam ENT Exam: Mucous Membranes Moist - Respiratory Exam Respiratory Exam: Clear to Ausculation Bilateral, NORMAL BREATHING PATTERN. absent: Decreased Breath Sounds, Rales, Rhonchi, Wheezes, Respiratory Distress - Cardiovascular Exam Cardiovascular Exam: REGULAR RHYTHM, +S1, +S2. absent: Bradycardia, Tachycardia , Murmur - GI/Abdominal Exam GI & Abdominal Exam: Soft, Normal Bowel Sounds. absent: Distended, Firm, Tenderness - Extremities Exam Extremities Exam: Normal Inspection. absent: Pedal Edema, Tenderness - Neurological Exam Neurological Exam: Alert, Awake, Oriented x3 - Skin Skin Exam: Dry, Intact, Normal Color, Warm Assessment and Plan - Assessment and Plan (Free Text) Assessment: 77 yo male with PMH of atrial fibrillation, aortic valve replacement (porcine valve), seizure disorder, benign prostatic hyperplasia presented with sepsis due to UTI / pyelonephritis with enterobacter aerogenes, as well as gram positive cocci bacteremia. TTE did not show any vegatation, recommend SHARLA to r/ o endocarditis. Follow up final results of blood cultures. Repeat blood cultures show no growth after 48 hours. Continue Vancomycin, Merrem. Recommend SHARLA since patient has aortic valve replaced and patient has gram positive bacteremia. will continue to monitor clinically case reviewed and discussed with attending <Cayetano Yen - Last Filed: 06/24/18 17:08> Objective - Vital Signs/Intake and Output Vital Signs (last 24 hours): Temp Pulse Resp BP Pulse Ox 98 F 60 18 105/65 96 06/24/18 12:00 06/24/18 12:00 06/24/18 12:00 06/24/18 12:00 06/24/18 06:00 Intake and Output: 06/24/18 06/24/18 06:59 18:59 Intake Total 710 Output Total 1300 Balance -590 - Medications Medications: Current Medications Acetaminophen (Tylenol 325mg Tab) 650 mg PO Q4H PRN PRN Reason: Fever >100.5 F Last Admin: 06/20/18 16:34 Dose: 650 mg Albuterol/Ipratropium (Duoneb 3 Mg/0.5 Mg (3 Ml) Ud) 3 ml IH [id number] PRN PRN Reason: Shortness of Breath Last Admin: 06/20/18 15:49 Dose: 3 ml Amlodipine Besylate (Norvasc) 5 mg PO DAILY [facility] Last Admin: 06/24/18 10:15 Dose: 5 mg Aspirin (Ecotrin) 81 mg PO DAILY [facility] Last Admin: 06/24/18 10:15 Dose: 81 mg Digoxin (Digoxin) 0.125 mg PO DAILY [facility] Last Admin: 06/24/18 10:15 Dose: 0.125 mg Hydrochlorothiazide (Hydrodiuril) 25 mg PO DAILY [facility] Last Admin: 06/24/18 10:16 Dose: 25 mg Meropenem (Merrem Iv 1 Gm Premix) 50 mls @ 100 mls/hr IVPB Q8 [facility] PRN Reason: Protocol Stop: 06/28/18 22:05 Last Admin: 06/24/18 13:25 Dose: 100 mls/hr Vancomycin HCl (Vancomycin 1gm) 1 gm in 250 mls @ 167 mls/hr IVPB Q12H [facility] PRN Reason: Protocol Last Admin: 06/24/18 10:14 Dose: 167 mls/hr Oxcarbazepine (Trileptal) 300 mg PO Q12 [facility] PRN Reason: Protocol Last Admin: 06/24/18 10:15 Dose: 300 mg Sotalol HCl (Betapace) 80 mg PO Q12H [facility] Last Admin: 06/24/18 11:20 Dose: 80 mg Tamsulosin HCl (Flomax) 0.4 mg PO DAILY [facility] Last Admin: 06/24/18 10:15 Dose: 0.4 mg Warfarin Sodium (Coumadin) 5 mg PO 1800 [facility] PRN Reason: Protocol - Labs Labs: 06/24/18 06:30 06/24/18 06:30 PT 23.4 SECONDS (9.4-12.5) H 06/24/18 06:30 INR 2.01 06/24/18 06:30 APTT 30.4 Seconds (25.1-36.5) 06/19/18 23:20 Assessment and Plan - Assessment and Plan (Free Text) Assessment: Infectious Diseases Attending Physician Addendum Patient seen and examined, discussed with phlebotomist medical lab assistant. I have reviewed the pertinent clinical information for the patient, including history of present illness, medical, personal and social histories, lab results and imaging findings. I agree with the above findings, assessment and plan. In addition, continue Vancomycin and Merrem for sepsis from UTI/pyelonephritis with Enterobacter with gram positive cocci bacteremia as well. Follow up final blood cx results. May need SHARLA. Repeat blood cx are negative. Will continue to monitor clinically.
[2018-06-24 17:45] VITALS: O2SAT 99
--- NOTE | 2018-06-24 22:43 | PN ---
Copied To: Corina Teixeira MD Attending MD: Corina Teixeira MD DATE: 06/24/2018 PULMONARY PROGRESS NOTE REFERRING PHYSICIAN: Nato Smith MD. SUBJECTIVE: He is out of bed to chair. Night was unremarkable. Feels okay. No headache. No rhinitis. Has still mild dysuria. No leg pain or leg swelling. OBJECTIVE: GENERAL: In no acute distress. VITAL SIGNS: Temperature is 98, heart rate is 77, respiratory rate is 18, blood pressure 150/84, pulse ox 90% on room air. HEENT: Moist mucous membrane. Crowded airway. NECK: Supple. No JVD. LUNGS: Have a fair airflow with few rhonchi. HEART: S1 and S2. ABDOMEN: Soft, nontender. No organomegaly. EXTREMITIES: No edema. NEUROLOGICAL: Awake and alert. Follows simple command. MEDICATIONS: He is on sotalol 80 mg every 12 hours, Coumadin 5 mg daily, digoxin 0.125 mg daily, DuoNeb every 6 hours p.r.n., Ecotrin 81 mg daily, Flomax 0.4 mg daily, hydrochlorothiazide 25 mg daily, meropenem 1 g IV every 8 hours, Norvasc 5 mg daily, Trileptal 300 mg every 12 hours, Tylenol p.r.n. basis, vancomycin 1 g IV every 12 hours. LABORATORY DATA: Shows hemoglobin 14.3, hematocrit 40.9, WBC 10.2, platelet is 158. INR 2.01. Sodium 140, potassium 3.8, chloride 102, bicarbonate 30, BUN 18, creatinine 0.7, glucose 91, calcium 8.8, total bili 1.7, AST 52, ALT 44, alk phos is 85, albumin is 3.4. Urine culture has Enterococcus aeruginosa and one out of two blood culture has Enterobacter aerogenes, Strep species. IMPRESSION AND PLAN: Recurrent seizure, valvular heart disease, atrial fibrillation, coronary artery disease, history of urinary tract infection, bacteremia, high procalcitonin with pneumonitis on a CT of the chest, history of asbestos exposure in the remote past. Pulmonary point of view, doing okay. Continue antibiotics as per Infectious Diseases. Gastric prophylaxis. DVT prophylaxis. Fall precaution. Improved blood pressure. Need followup CAT scan of the chest in few weeks to assure the stability of pneumonitis. Thank you and we will follow with you. Corina Teixeira MD [facility] # [id number]
[2018-06-25] MEDS ORDERED: Cefepime (Maxipime) 1 g Inj IVPB SCH (00:30)
[2018-06-25] MEDS ORDERED: Cefepime IV 2 gm in NS 2 GM/100 ML BAG IVPB SCH (00:45)
[2018-06-25] MEDS ORDERED: Labetalol 5 mg/ml Inj 20ML IV PRN (00:54)
--- NOTE | 2018-06-25 01:01 | PCM.STROKE ---
Interval History Critical Care Time Spent (in minutes): 60 Unable to obtain (state reason): patient was found on the ground. last seen normal at 10:30 on 06/24. Interval History: a fib on warfarin/sotalol and digioxin, aortic valve replacement s/p open heart surgery, seizure, UTI, sepsis - Treatment Antiplatelet: Acetylsalicylic acid (ASA) Anticoagulation: Warfarin Statin: Atrovastatin Intensive: No - Education Written Stroke Education provided regarding: personal risk factors, stroke warning sign/symptoms, how to activate emergency medical services, need to follow up after discharge NIHSS Stroke Scale - Date/Time Evaluation Performed Date Performed: 06/25/18 Time Performed: 01:01 When Was NIHSS Performed: Code Stroke Re-evaluation - How Severe is the Stroke Level of Consciousness: 3=Unresponsive LOC to Questions: 2=Neither correct LOC to commands: 1=Obeys one correctly Best Gaze: 0=Normal Visual: 0=No visual loss Facial: 1=Minor asymmetry Motor Arm - Left: 1=Drift noted before 10 sec Motor Arm - Right: 1=Drift noted before 10 sec Motor Leg - Left: 1=Drift before 5 sec Motor Leg - Right: 1=Drift before 5 sec Limb Ataxia: 0=Absent Sensory: 0=Normal Best Language: 3=Mute Dysarthia: 2=Severe, near unintelligible or worse Extinction & Inattention (Neglect): 0=Normal, no object Score: 16 Exam - Vital Sign Vital Signs: Temp Pulse Resp BP Pulse Ox 98 F 77 18 150/84 99 06/24/18 17:44 06/24/18 17:44 06/24/18 17:44 06/24/18 17:44 06/24/18 17:44 Constitutional: No distress, Other (difficult to evaluate patient. Patient is hard of hearing and patient would not communicate with staff) Ophthalmoscopic: absent: papilledema, hemorrhage Right Pupil: Reactive Left Pupil: Reactive Cardiovascular: Other (IR, IR) Mental Status: Normal: Other (difficult to evaluate to patient not responding to questions) Neuro motor strength exam: Left Upper Extremity: 4, Right Upper Extremity: 4, Left Lower Extremity: 4, Right Lower Extremity: 4 Flexor Plantar Reflex: Normal - Data reviewed Laboratory results: 06/24/18 06:30 06/24/18 06:30 Assessment and Plan - Assessment and Plan (Free Text) Assessment: 75 year old male with past medical history of atrial fibrillation on warfarin, sotalol, digoxin, aortic valve replacement status post open heart surgery, and seizure presents post fall. Patient was found on the ground with bleeding of right side of head. Patient was helped up onto the bed. Patient's baseline mental status is unknown. Patient would not communicate back to the staff. Plan: Rule out stroke vs. seizure -2/2 to atrial fibrillation vs. carotid artery stenosis vs. history of seizure -BNP, CBC, CMP, CPK, LDH, ESR, CRP, HgbA1c, Lipid panel, T3, T4, TSH, troponin, vitamin B12 ordered. -Head CT without contrast ordered. -Neurocheck Q2 -NIHSS: 16 -Nursing swallow screen -seizure precautions -aspiration precautions -PT, OT, Speech consulted. -Sotalol, meropenem, HCTZ, and norvasc held due to risk of seizure and hypotension. -Atorvastatin PO started pending swallow evaluation. -Dr. Fatima, neurology, discussed case. Dr. Fatima recommends that patient is not a candidate for TPa. -Dr. Stewart, vascular neurology, Dr. Beaulieu, neurovascular, consulted for recommendations. Follow recommendations.
[2018-06-25] MEDS: levETIRAcetam 500mg IVPB 500 MG/100 ML BAG IV SCH ×2 (01:13→10:20)
[2018-06-25 01:36] LABS: HEMOGLOBIN 14.6 g/dL (14.0-18.0); MEAN CELL VOLUME 91.2 fl (80.0-105.0); MEAN CORPUSCULAR HEMOGLOBIN 31.4 pg (25.0-35.0); MEAN CORPUSCULAR HGB CONC 34.4 g/dl (31.0-37.0); MEAN PLATELET VOLUME 9.6 fl (7.0-11.0); RBC 4.65 10^6/uL (3.5-6.1); RED CELL DISTRIBUTION WIDTH 13.1 % (11.5-14.5); WHITE BLOOD COUNT 10.3 10^3/ul (4.5-11.0)
[2018-06-25] MEDS ORDERED: Iohexol 350 MG/100 ML VIAL ONE (01:54)
[2018-06-25 02:02] LABS: ALB/GLOB RATIO 0.9 (1.1-1.8); ALBUMIN 3.3 g/dL (3.0-4.8); ALT/SGPT 44 U/L (7-56); AST/SGOT 47 U/L (17-59); BLOOD UREA NITROGEN 23 mg/dL (7-21); CALCIUM 8.7 mg/dL (8.4-10.5); GFR NON-AFRICAN AMERICAN > 60; HDL CHOLESTEROL 13 mg/dL (29-60)
[2018-06-25 02:03] LABS: B-TYPE NATRIURETIC PEPTIDE 1260 pg/mL (0-450); LDL CHOLESTEROL 92 mg/dL (0-129); TROPONIN I < 0.01 ng/mL
[2018-06-25 03:09] LABS: T3 0.96 ng/mL (0.97-1.69)
[2018-06-25 06:42] LABS: BASO # 0.01 K/mm3 (0.0-2.0); BASO % 0.1 % (0.0-3.0); EOS # 0.2 (0.0-0.7); EOS % 1.8 % (1.5-5.0); GRAN # 10.38 (1.4-6.5); GRAN % 82.7 % (50.0-68.0); HEMOGLOBIN 14.9 g/dL (14.0-18.0); LYMPH # 0.8 (1.2-3.4); LYMPH % 6.7 % (22.0-35.0); MEAN CELL VOLUME 90.5 fl (80.0-105.0); MEAN CORPUSCULAR HEMOGLOBIN 31.4 pg (25.0-35.0); MEAN CORPUSCULAR HGB CONC 34.7 g/dl (31.0-37.0); MEAN PLATELET VOLUME 9.5 fl (7.0-11.0); MONO # 1.1 (0.1-0.6); MONO % 8.7 % (1.0-6.0); RBC 4.74 10^6/uL (3.5-6.1); WHITE BLOOD COUNT 12.6 10^3/ul (4.5-11.0)
[2018-06-25 06:47] LABS: INR 2.24; PROTHROMBIN TIME 26.2 SECONDS (9.4-12.5)
[2018-06-25 06:50] LABS: ALB/GLOB RATIO 0.9 (1.1-1.8); ALBUMIN 3.5 g/dL (3.0-4.8); ALT/SGPT 39 U/L (7-56); AST/SGOT 45 U/L (17-59); BLOOD UREA NITROGEN 20 mg/dL (7-21); CALCIUM 8.7 mg/dL (8.4-10.5); GFR NON-AFRICAN AMERICAN > 60
--- NOTE | 2018-06-25 08:00 | CP.PCM.PN ---
Subjective - Date & Time of Evaluation Date of Evaluation: 06/25/18 Time of Evaluation: 07:00 - Subjective Subjective: Events of last night noted. He was found on the floor by nurses. He appears to have had a stroke with left sided weakness. Not speaking, etc. CT head was negative by verball report. CTA head and neck is pending. V/S noted. AF. No fever. PE: Lungs: clear Cor.: irreg., S1S2, sys murmur Abd.: soft Ext.: no edema Neuro.: not moving left side. not speaking I/O= 1280/1925 Labs noted: INR = 2.24, WBC = 12,600, BMP OK BC X 1 : + Enteobacter Aerogenes Urine C+S: + Enterobacter Aerogenes BC X 2 additional: NG at 48 hrs. Objective - Vital Signs/Intake and Output Vital Signs (last 24 hours): Temp Pulse Resp BP Pulse Ox 98 F 105 H 20 135/75 99 06/25/18 02:54 06/25/18 02:54 06/25/18 02:54 06/25/18 04:54 06/24/18 17:44 Intake and Output: 06/25/18 06/25/18 06:59 18:59 Intake Total 800 Output Total 1150 Balance -350 - Medications Medications: Current Medications Acetaminophen (Tylenol 325mg Tab) 650 mg PO Q4H PRN PRN Reason: Fever >100.5 F Last Admin: 06/20/18 16:34 Dose: 650 mg Albuterol/Ipratropium (Duoneb 3 Mg/0.5 Mg (3 Ml) Ud) 3 ml IH [id number] PRN PRN Reason: Shortness of Breath Last Admin: 06/20/18 15:49 Dose: 3 ml Amlodipine Besylate (Norvasc) 5 mg PO DAILY [facility] Last Admin: 06/24/18 10:15 Dose: 5 mg Aspirin (Ecotrin) 81 mg PO DAILY [facility] Last Admin: 06/24/18 10:15 Dose: 81 mg Aspirin (Aspirin Supp) 81 mg RC DAILY [facility] Atorvastatin Calcium (Lipitor) 80 mg PO DAILY [facility] Digoxin (Digoxin) 0.125 mg PO DAILY [facility] Last Admin: 06/24/18 10:15 Dose: 0.125 mg Hydrochlorothiazide (Hydrodiuril) 25 mg PO DAILY [facility] Last Admin: 06/24/18 10:16 Dose: 25 mg Meropenem (Merrem Iv 1 Gm Premix) 50 mls @ 100 mls/hr IVPB Q8 [facility] PRN Reason: Protocol Stop: 06/28/18 22:05 Last Admin: 06/24/18 22:14 Dose: 100 mls/hr Vancomycin HCl (Vancomycin 1gm) 1 gm in 250 mls @ 167 mls/hr IVPB Q12H [facility] PRN Reason: Protocol Last Admin: 06/24/18 23:00 Dose: 167 mls/hr Levetiracetam (Keppra 500mg Ivpb) 500 mg in 100 mls @ 400 mls/hr IV Q12 [facility] Last Admin: 06/25/18 01:13 Dose: 400 mls/hr Cefepime HCl (Maxipime 2gm) 2 gm in 100 mls @ 100 mls/hr IVPB Q12H [facility] Stop: 06/30/18 00:46 Last Admin: 06/25/18 01:25 Dose: Not Given Labetalol HCl (Trandate) 10 mg IV Q4 PRN PRN Reason: Blood Pressure 220/110 & above Oxcarbazepine (Trileptal) 300 mg PO Q12 [facility] PRN Reason: Protocol Last Admin: 06/24/18 22:22 Dose: 300 mg Sotalol HCl (Betapace) 80 mg PO Q12H [facility] Last Admin: 06/24/18 23:00 Dose: 80 mg Tamsulosin HCl (Flomax) 0.4 mg PO DAILY [facility] Last Admin: 06/24/18 10:15 Dose: 0.4 mg Warfarin Sodium (Coumadin) 5 mg PO 1800 [facility] PRN Reason: Protocol Last Admin: 06/24/18 17:19 Dose: 5 mg - Labs Labs: 06/25/18 06:00 06/25/18 06:00 PT 26.2 SECONDS (9.4-12.5) H 06/25/18 06:00 INR 2.24 06/25/18 06:00 APTT 30.4 Seconds (25.1-36.5) 06/19/18 23:20 Assessment and Plan - Assessment and Plan (Free Text) Assessment: Seizure initially Found on floor 06/24: R/O CVA (? embolic), Seizure. Fever/UTI/urinary incontinence BC X1 + Enterobacter Aerogenes H/O recent fall at home/head trauma CAD/CABG/AVR Chronic AF on warfarin: occasional 2 - 3 sec pauses on tel. CVA COPD Asbestos exposure HLD BPH Plan: AB Get CT results Neuro. eval. Hold warfarin today Hold sotolol, lipitor, norvasc while NPO Monitor INRs daily SHARLA planned for next week As per ID, Uro., pulm., neuro. and Dr. Smith/medical team. Neuro signs, seizure precautions. Will follow.
--- NOTE | 2018-06-25 09:04 | PN ---
Copied To: Nato Smith MD Attending MD: Nato Smith MD DATE: 06/25/2018 SUBJECTIVE: The patient is not able to communicate. The notes from overnight had been reviewed. PHYSICAL EXAMINATION: VITAL SIGNS: Temperature is 97.5, pulse is 70, blood pressure is 112/81, respirations 16. GENERAL: The patient is lying in bed, flat, comfortable. HEENT: No oral lesion. Anicteric sclerae. Moist mucosa. NECK: No JVD, adenopathy, or thyromegaly. CARDIOVASCULAR: S1 and S2, regular. No murmurs, rubs, or gallops. LUNGS: Clear to auscultation bilaterally. No wheeze, rales, or rhonchi. ABDOMEN: Bowel sounds are positive, soft, nontender and nondistended. EXTREMITIES: No cyanosis, clubbing or edema. NEUROLOGICAL: Right arm 0/5 power, right leg 0/5 power proximal and distally. There is right-sided facial asymmetry. The patient is not able to communicate or speak. LABORATORY DATA: White count of 12.6, creatinine is 0.6. ASSESSMENT: 1. 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 2. Atrial fibrillation, on anticoagulation, therapeutic. 3. Sepsis. 4. Urinary tract infection. 5. Hypertension. 6. Thrombocytopenia. 7. History of seizure disorders. 8. Hypophosphatemia. 9. Fall. PLAN: The patient had a stroke overnight. The patient's NIH stroke scale was done. It was scored at 16. Dr. Fatima was consulted for acute stroke. The patient is currently n.p.o. Not able to take his medications. We will most likely need to place the patient on IV or subcu injections if the patient fails his swallowing evaluation. I did speak to the patient's to give her an update about the patient's diagnosis and plan of care. His INR being therapeutic. I am not sure if there is anything else that could have been done to prevent stroke. The patient has been on his digoxin, sotalol. He is also on aspirin daily. An MRI has been ordered. Nato Smith MD
--- NOTE | 2018-06-25 09:35 | CT ---
Date of service: 06/25/2018 PROCEDURE: CT HEAD WITHOUT CONTRAST. HISTORY: code star COMPARISON: 06/20/2018 TECHNIQUE: Axial computed tomography images were obtained through the head/brain without intravenous contrast. Radiation dose: Total exam DLP = 934 mGy-cm. This CT exam was performed using one or more of the following dose reduction techniques: Automated exposure control, adjustment of the mA and/or kV according to patient size, and/or use of iterative reconstruction technique. FINDINGS: HEMORRHAGE: No intracranial hemorrhage. BRAIN: No mass effect or edema. Severe chronic microvascular changes in the periventricular white matter. VENTRICLES: Unremarkable. No hydrocephalus. CALVARIUM: Unremarkable. PARANASAL SINUSES: Unremarkable as visualized. No significant inflammatory changes. MASTOID AIR CELLS: Unremarkable as visualized. No inflammatory changes. OTHER FINDINGS: The report concurs with the preliminary [facility] report IMPRESSION: No acute intracranial findings
[2018-06-25] MEDS: Digoxin 125 mcg (0.125 mg) Tab PO SCH (10:01)
--- NOTE | 2018-06-25 11:12 | CP.PCM.CON ---
History of Present Illness - History of Present Illness History of Present Illness: I was consulted on who has a history of afib, and on coumadin, inr is 2.0, epilepsy, hyprtension, aVr placed 10 years ago, who was in the hospital with a normal neurological exam when he suddenly developed aphasia, right sided plegia and fell on the ground at around midnight. He was evaluated by the resident who found him to be plegic and had CT head done. CT head was found to be normal, and patient regained his strength in his arm. He was not thought to be a TPA candidate due to coumadin and resolving deficits. At some point between 3 am and 8 am, the patient developed further weakness and cta head and neck was ordered. It revealed that the patient has an M1 occlusion with a left ica thrombus. Dr. Beaulieu, neurointerventional was called and his team will be performing thrombectomy as soon as possible at [facility]. On my examination, patient is completely aphasic, and plegic on right side, and blood pressure is approximately 190/80. Transfer has been arranged and we are awaiting [facility] ambulance. ROS; unable to assess On exam: awake, aphasic. PERRL. right facial asymmetry. Right sided plegia, 0/5 arm and leg. Patient is following commands inconsistently, appears to have global aphasia Past Patient History - Infectious Disease Hx of Infectious Diseases: None - Tetanus Immunizations Tetanus Immunization: Unknown - Past Social History Smoking Status: Never Smoked - CARDIAC Hx Pacemaker: No - PULMONARY Hx Respiratory Disorders: No - NEUROLOGICAL Hx Seizures: Yes - HEENT Hx Deafness: Yes ([place]) - RENAL Hx Chronic Kidney Disease: No - ENDOCRINE/METABOLIC Hx Endocrine Disorders: No - HEMATOLOGICAL/ONCOLOGICAL Hx Blood Transfusions: No Hx Blood Transfusion Reaction: No - INTEGUMENTARY Hx Dermatological Problems: No - MUSCULOSKELETAL/RHEUMATOLOGICAL Hx Musculoskeletal Disorders: Yes (HANDS) - GASTROINTESTINAL Hx Gastrointestinal Disorders: No - GENITOURINARY/GYNECOLOGICAL Hx Genitourinary Disorders: No - PSYCHIATRIC Hx Emotional Abuse: No Hx Physical Abuse: No Hx Substance Use: No - SURGICAL HISTORY Hx Open Heart Surgery: Yes Hx Valve Replacement: Yes (AVR) - ANESTHESIA Hx Anesthesia: Yes Hx Anesthesia Reactions: No Hx Malignant Hyperthermia: No Meds Allergies/Adverse Reactions: Allergies Allergy/AdvReac Type Severity Reaction Status Date / Time COLD MEDICATIONS Allergy Intermediate RASH Uncoded 07/04/16 11:55 - Medications Medications: Current Medications Acetaminophen (Tylenol 325mg Tab) 650 mg PO Q4H PRN PRN Reason: Fever >100.5 F Last Admin: 06/20/18 16:34 Dose: 650 mg Albuterol/Ipratropium (Duoneb 3 Mg/0.5 Mg (3 Ml) Ud) 3 ml IH [id number] PRN PRN Reason: Shortness of Breath Last Admin: 06/20/18 15:49 Dose: 3 ml Amlodipine Besylate (Norvasc) 5 mg PO DAILY [facility] Last Admin: 06/24/18 10:15 Dose: 5 mg Aspirin (Ecotrin) 81 mg PO DAILY [facility] Last Admin: 06/24/18 10:15 Dose: 81 mg Aspirin (Aspirin Supp) 81 mg RC DAILY [facility] Last Admin: 06/25/18 10:21 Dose: 81 mg Atorvastatin Calcium (Lipitor) 80 mg PO DAILY [facility] Digoxin (Digoxin) 0.125 mg PO DAILY [facility] Last Admin: 06/25/18 10:01 Dose: Not Given Hydrochlorothiazide (Hydrodiuril) 25 mg PO DAILY [facility] Last Admin: 06/24/18 10:16 Dose: 25 mg Meropenem (Merrem Iv 1 Gm Premix) 50 mls @ 100 mls/hr IVPB Q8 [facility] PRN Reason: Protocol Stop: 06/28/18 22:05 Last Admin: 06/24/18 22:14 Dose: 100 mls/hr Levetiracetam (Keppra 500mg Ivpb) 500 mg in 100 mls @ 400 mls/hr IV Q12 [facility] Last Admin: 06/25/18 10:20 Dose: 400 mls/hr Cefepime HCl (Maxipime 2gm) 2 gm in 100 mls @ 100 mls/hr IVPB Q12H [facility] Stop: 06/30/18 00:46 Last Admin: 06/25/18 01:25 Dose: Not Given Labetalol HCl (Trandate) 10 mg IV Q4 PRN PRN Reason: Blood Pressure 220/110 & above Oxcarbazepine (Trileptal) 300 mg PO Q12 [facility] PRN Reason: Protocol Last Admin: 06/25/18 10:03 Dose: Not Given Sotalol HCl (Betapace) 80 mg PO Q12H [facility] Last Admin: 06/24/18 23:00 Dose: 80 mg Tamsulosin HCl (Flomax) 0.4 mg PO DAILY [facility] Last Admin: 06/25/18 10:01 Dose: Not Given Warfarin Sodium (Coumadin) 5 mg PO 1800 [facility] PRN Reason: Protocol Last Admin: 06/24/18 17:19 Dose: 5 mg Results - Vital Signs Recent Vital Signs: Last Vital Signs Temp 97.5 F L 06/25/18 06:54 Pulse 70 06/25/18 06:54 Resp 16 06/25/18 06:54 BP 112/81 06/25/18 06:54 Pulse Ox 99 06/24/18 17:44 - Labs Result Diagrams: 06/25/18 06:00 06/25/18 06:00 Labs: Laboratory Results - last 24 hr 06/25/18 06/25/18 06/25/18 01:30 01:30 01:30 WBC 10.3 RBC 4.65 Hgb 14.6 Hct 42.4 MCV 91.2 MCH 31.4 MCHC 34.4 RDW 13.1 Plt Count 159 MPV 9.6 Gran % Lymph % (Auto) [place] % (Auto) Eos % (Auto) Baso % (Auto) Gran # Lymph # (Auto) [place] # (Auto) Eos # (Auto) Baso # (Auto) ESR 40 H PT INR Sodium 138 Potassium 4.0 Chloride 100 Carbon Dioxide 31 Anion Gap 12 BUN 23 H Creatinine 0.7 L Est GFR ( Amer) > 60 Est GFR (Non-Af Amer) > 60 Random Glucose 102 Calcium 8.7 Total Bilirubin 1.3 AST 47 ALT 44 Alkaline Phosphatase 76 Lactate Dehydrogenase 567 Total Creatine Kinase 47 Troponin I < 0.01 D NT-Pro-B Natriuret Pep 1260 H Total Protein 6.9 Albumin 3.3 Globulin 3.5 Albumin/Globulin Ratio 0.9 L Triglycerides 110 Cholesterol 130 LDL Cholesterol Direct 92 HDL Cholesterol 13 L Thyroxine (T4) 8.0 Total T3 0.96 L TSH 3rd Generation 1.41 06/25/18 06/25/18 06/25/18 06:00 06:00 06:00 WBC 12.6 H D RBC 4.74 Hgb 14.9 Hct 42.9 MCV 90.5 MCH 31.4 MCHC 34.7 RDW 13.0 Plt Count 169 MPV 9.5 Gran % 82.7 H Lymph % (Auto) 6.7 L [place] % (Auto) 8.7 H Eos % (Auto) 1.8 Baso % (Auto) 0.1 Gran # 10.38 H Lymph # (Auto) 0.8 L [place] # (Auto) 1.1 H Eos # (Auto) 0.2 Baso # (Auto) 0.01 ESR PT 26.2 H INR 2.24 Sodium 140 Potassium 3.9 Chloride 101 Carbon Dioxide 29 Anion Gap 14 BUN 20 Creatinine 0.6 L Est GFR ( Amer) > 60 Est GFR (Non-Af Amer) > 60 Random Glucose 100 Calcium 8.7 Total Bilirubin 1.7 H AST 45 ALT 39 Alkaline Phosphatase 86 Lactate Dehydrogenase Total Creatine Kinase Troponin I NT-Pro-B Natriuret Pep Total Protein 7.3 Albumin 3.5 Globulin 3.7 Albumin/Globulin Ratio 0.9 L Triglycerides Cholesterol LDL Cholesterol Direct HDL Cholesterol Thyroxine (T4) Total T3 TSH 3rd Generation Assessment & Plan - Assessment and Plan (Free Text) Assessment: 77 yr old male with afib, on coumadin, therapeutic INR who developed left ICA thrombus, and is now being transferred for thrombectomy at [facility]. NIH stroke scale is 21 [address] you [address] carr
[2018-06-25 11:58] VITALS: BP 152/87; PULSE 89; RESP 18; TEMP 97.8
--- NOTE | 2018-06-25 12:44 | CT ---
Date of service: 06/25/2018 PROCEDURE: CT Angiography of the neck with contrast HISTORY: stroke COMPARISON: None. TECHNIQUE: Contiguous axial images of the neck were obtained from the level of the skull-base to the superior mediastinum in the arteriographic phase of enhancement. Coronal and sagittal reformats or also generated. IV contrast dose: 100 cc of Omni 350 Radiation Dose - DLP: 400 mGy-cm This CT exam was performed using one or more of the following dose reduction techniques: Automated exposure control, adjustment of the mA and/or kV according to patient size, and/or use of iterative reconstruction technique. FINDINGS: RIGHT CAROTID ARTERIES: There is calcified plaque with a mild stenosis in the proximal internal carotid. LEFT CAROTID ARTERIES: Calcified plaque in the bifurcation with no significant stenosis VERTEBRAL ARTERIES: Right Vertebral Artery: Normal. Left Vertebral Artery: Normal. OTHER FINDINGS: None. IMPRESSION: Normal CT Angiography of the neck. PROCEDURE: CT Angiography of the Brain. HISTORY: stroke COMPARISON: None available. TECHNIQUE: CT angiography of the intracranial arteries was performed. Coronal and sagittal maximum intensity projection reformated images were generated. This CT exam was performed using one or more of the following dose reduction techniques: Automated exposure control, adjustment of the mA and/or kV according to patient size, and/or use of iterative reconstruction technique. FINDINGS: INTERNAL CEREBRAL ARTERIES: There is occlusion at the level of the junction of the left internal carotid artery and M1 segment of the middle cerebral artery. ANTERIOR CEREBRAL ARTERIES: Unremarkable. A1 and A2 segments are widely patent. Smaller distal branches unremarkable, as visualized. MIDDLE CEREBRAL ARTERIES: Unremarkable. M1 and M2 segments are widely patent. Perisylvian branches grossly symmetric. POSTERIOR CIRCULATION: Basilar Artery: Unremarkable. Distal Vertebral Arteries: Unremarkable. Posterior Cerebral Arteries: Unremarkable. Posterior Inferior Cerebellar Arteries: Unremarkable. ANEURYSM/ VASCULAR MALFORMATIONS: None. OTHER FINDINGS: None. IMPRESSION: There is occlusion at the level of the junction of the left internal carotid artery and M1 segment of the middle cerebral artery. Most likely due to thrombus.
--- NOTE | 2018-06-25 17:29 | CP.PCM.PN ---
Subjective - Date & Time of Evaluation Date of Evaluation: 06/25/18 Time of Evaluation: 11:20 - Subjective Subjective: Patient being transferred to [facility] for left ICA thrombectomy , no fevers, not in distress. Objective - Vital Signs/Intake and Output Vital Signs (last 24 hours): Temp Pulse Resp BP Pulse Ox 97.5 F L 70 16 112/81 99 06/25/18 06:54 06/25/18 06:54 06/25/18 06:54 06/25/18 06:54 06/24/18 17:44 Intake and Output: 06/25/18 06/25/18 06:59 18:59 Intake Total 800 Output Total 1150 Balance -350 - Medications Medications: Current Medications Acetaminophen (Tylenol 325mg Tab) 650 mg PO Q4H PRN PRN Reason: Fever >100.5 F Last Admin: 06/20/18 16:34 Dose: 650 mg Albuterol/Ipratropium (Duoneb 3 Mg/0.5 Mg (3 Ml) Ud) 3 ml IH [id number] PRN PRN Reason: Shortness of Breath Last Admin: 06/20/18 15:49 Dose: 3 ml Amlodipine Besylate (Norvasc) 5 mg PO DAILY [facility] Last Admin: 06/24/18 10:15 Dose: 5 mg Aspirin (Ecotrin) 81 mg PO DAILY [facility] Last Admin: 06/24/18 10:15 Dose: 81 mg Aspirin (Aspirin Supp) 81 mg RC DAILY [facility] Atorvastatin Calcium (Lipitor) 80 mg PO DAILY [facility] Digoxin (Digoxin) 0.125 mg PO DAILY [facility] Last Admin: 06/25/18 10:01 Dose: Not Given Hydrochlorothiazide (Hydrodiuril) 25 mg PO DAILY [facility] Last Admin: 06/24/18 10:16 Dose: 25 mg Meropenem (Merrem Iv 1 Gm Premix) 50 mls @ 100 mls/hr IVPB Q8 [facility] PRN Reason: Protocol Stop: 06/28/18 22:05 Last Admin: 06/24/18 22:14 Dose: 100 mls/hr Vancomycin HCl (Vancomycin 1gm) 1 gm in 250 mls @ 167 mls/hr IVPB Q12H [facility] PRN Reason: Protocol Last Admin: 06/24/18 23:00 Dose: 167 mls/hr Levetiracetam (Keppra 500mg Ivpb) 500 mg in 100 mls @ 400 mls/hr IV Q12 [facility] Last Admin: 06/25/18 01:13 Dose: 400 mls/hr Cefepime HCl (Maxipime 2gm) 2 gm in 100 mls @ 100 mls/hr IVPB Q12H [facility] Stop: 06/30/18 00:46 Last Admin: 06/25/18 01:25 Dose: Not Given Labetalol HCl (Trandate) 10 mg IV Q4 PRN PRN Reason: Blood Pressure 220/110 & above Oxcarbazepine (Trileptal) 300 mg PO Q12 [facility] PRN Reason: Protocol Last Admin: 06/25/18 10:03 Dose: Not Given Sotalol HCl (Betapace) 80 mg PO Q12H [facility] Last Admin: 06/24/18 23:00 Dose: 80 mg Tamsulosin HCl (Flomax) 0.4 mg PO DAILY [facility] Last Admin: 06/25/18 10:01 Dose: Not Given Warfarin Sodium (Coumadin) 5 mg PO 1800 [facility] PRN Reason: Protocol Last Admin: 06/24/18 17:19 Dose: 5 mg - Labs Labs: 06/25/18 06:00 06/25/18 06:00 PT 26.2 SECONDS (9.4-12.5) H 06/25/18 06:00 INR 2.24 06/25/18 06:00 APTT 30.4 Seconds (25.1-36.5) 06/19/18 23:20 - Constitutional Appears: Chronically Ill - Head Exam Head Exam: NORMAL INSPECTION Assessment and Plan - Assessment and Plan (Free Text) Plan: Assessment sepsis due to UTI / pyelonephritis with Enterobacter bacteremia, R/O endocarditis new onset Left ICA thrombus atrial fibrillation aortic valve replacement seizure disorder benign prostatic hyperplasia Plan will keep Merrem - repeat blood cx are negative - recommend SHARLA to rule out vegetations and to determine duration of therapy patient going to [facility] for thrombectomy
--- NOTE | 2018-06-28 08:16 | PN ---
Copied To: Corina Teixeira MD Attending MD: Corina Teixeira MD DATE: 06/25/2018 PULMONARY PROGRESS NOTE REFERRING PHYSICIAN: Nato Simth MD SUBJECTIVE: He is on stretcher being transferred to [facility]. Apparently earlier today, the patient got up from bed, had a fall, hit his head with change in mental status, become aphasic and right upper and lower extremity weakness, found to have an ischemic stroke. There is no hemoptysis or emesis. No hematuria. No diarrhea or leg swelling reported. PHYSICAL EXAMINATION: GENERAL: In no acute distress. VITAL SIGNS: Temperature is 98, heart rate is 89, respiratory rate is 20, blood pressure 152/87 and pulse ox 99% on 2 liter nasal cannula. HEENT: Moist mucous membranes. Crowded airway. Has a bandage on the right forehead. NECK: Supple. No JVD. LUNGS: Have a fair airflow with few rhonchi. HEART: S1 and S2. ABDOMEN: Soft and nontender. No organomegaly. EXTREMITIES: No edema. NEUROLOGICAL: Awake, alert, aphasic. LABORATORY DATA: Shows hemoglobin 14.9, hematocrit 42.9, WBC 12.6, platelet count is 169. INR is 2.24. Sodium 140, potassium 3.9, chloride 101, bicarbonate 29, BUN 20, creatinine 0.6, glucose 100, calcium is 8.7. Total bili 1.7. AST 45, ALT 39, alkaline phosphatase is 86, albumin is 3.5. TSH 1.41. Microbiology: Urine culture has Enterobacter aerogenes and 1/2 blood cultures have Enterobacter aerogenes. Has a CAT scan of the head done about midnight shows no acute intracranial finding, but was told on CTA has occlusion of the vessel. ASSESSMENT AND PLAN: According to Neurology note, the patient has left internal carotid artery thrombus. Other issues with him is valvular heart disease, history of valve replacement, seizure disorder, atrial fibrillation with therapeutic INR, coronary artery disease, urinary tract infection, history of asbestos exposure with pneumonitis. Case was discussed with the nursing staff who spoke to the patient's at bedside, being transferred to [place] for possible mechanical thrombectomy, not thrombolytic therapy candidate because of therapeutic INR. Corina Teixeira MD [facility] # [id number]
--- NOTE | 2018-06-28 08:31 | EEG ---
Copied To: Jer Meza MD Attending MD: Jer Meza MD DATE: 06/21/2018 CONDITION OF THE RECORDING: Drowsy. DIAGNOSIS: Seizure. MEDICATIONS: Reviewed by nurse's reconciliation sheet. INTERPRETATION: This is a 16-channel [employer] recording. Background activity of this tracing was composed of 6-7 cycles per second. There was small amount of beta activity of 16 to 20 cycles per second seen in this recording. There was increased amount of theta activity of 5 to 7 cycles per second seen in this tracing. Drowsiness was characterized by mixed beta and theta activities. The sleep was characterized by vertex transient waves, sleep spindles, and bilateral slowing. Photic stimulation showed no changes in the tracing. No paroxysmal activities noted in this recording. CONCLUSION: This is an abnormal EEG due to the presence of diffuse slowing throughout the recording consistent with bilateral cerebral dysfunction. No evidence of any epileptiform activity. Jer Meza MD
== END 2018-06-25 13:38 | disposition short-term general hospital (02) | DRG 871 ==
LOC: ED 22:52 → ERH 06-20 01:29 → 2RSO 06-20 03:40
PROVIDERS: ADMIT Internal Medicine Nephrology; ATTEND Internal Medicine Nephrology
DX: A41.9 Sepsis, unspecified organism (principal); J18.9 Pneumonia, unspecified organism; I63.512 Cerebral infarction due to unspecified occlusion or stenosis of left middle cerebral artery; G93.41 Metabolic encephalopathy; N12 Tubulo-interstitial nephritis, not specified as acute or chronic; G81.91 Hemiplegia, unspecified affecting right dominant side; R47.01 Aphasia; J44.0 Chronic obstructive pulmonary disease with (acute) lower respiratory infection; I65.22 Occlusion and stenosis of left carotid artery; R29.721 NIHSS score 21; B95.2 Enterococcus as the cause of diseases classified elsewhere; D69.6 Thrombocytopenia, unspecified; G40.909 Epilepsy, unspecified, not intractable, without status epilepticus; G89.29 Other chronic pain; I10 Essential (primary) hypertension; H91.90 Unspecified hearing loss, unspecified ear; I25.10 Atherosclerotic heart disease of native coronary artery without angina pectoris; E78.5 Hyperlipidemia, unspecified; I48.2 Chronic atrial fibrillation; N40.0 Benign prostatic hyperplasia without lower urinary tract symptoms; Z77.090 Contact with and (suspected) exposure to asbestos; E83.39 Other disorders of phosphorus metabolism; R32 Unspecified urinary incontinence; Z79.01 Long term (current) use of anticoagulants; Z79.82 Long term (current) use of aspirin; Z95.2 Presence of prosthetic heart valve; Z95.1 Presence of aortocoronary bypass graft